=== PATIENT | male | born 1960 | race Caucasian/White ===

== ENCOUNTER 2021-01-26 09:49 | Emergency (ER) | payer BC ==
[2021-01-26] MEDS ORDERED: solu-MEDROL 125 MG, Sterile H2O 10 ml 2 ML IV ONE ×2 (10:26)
[2021-01-26] MEDS ORDERED: DUONEB 0.5-3 MG/3 ml Neb IH ONE ×2 (10:26→10:33)
--- NOTE | 2021-01-26 10:26 | ERPHSYRPT ---
- History of Present Illness Time Seen by Provider: 01/26/21 10:18 Source: patient Exam Limitations: no limitations Patient Subjective Stated Complaint: Pt c/o of cough, congestion, headache and body aches for the past couple of days Triage Nursing Assessment: Pt brought to the ER by his , addison mar, denies pain, has had his covid vaccine, required nebulizer treatment approx every 2 hours last night with little relief, clear thick sputum, body aches, congestion, headache, pulses normal, afbrile Physician History: 60-year-old male with a history of prosthetic aortic valve, hypertension, COPD presented in the ER with chief complaint of 2 days history of cough congestion along with body aches fatigue tiredness and headache. Patient reports clear take mucus productive cough with associated generalized chest soreness. Reports using neb treatments last night frequently with some relief. Also having sweats/chills without fever. Timing/Duration: day(s) (2), gradual onset, worse Cough Quality/Degree: moderate, productive cough, sputum Modifying Factors: Improves With: albuterol nebulizer. Worsens With: coughing Associated Symptoms: chills, chest pain/soreness, cough, headache, muscle aches, wheezing Allergies/Adverse Reactions: No Known Drug Allergies Allergy (Verified 01/26/21 10:09) Home Medications: Dipyridamole 50 mg PO TID 01/26/21 [History] Ipratropium/Albuterol Sulfate [Iprat-Albut 0.5-3(2.5) mg/3 ml] 3 ml IH UD 01/26/21 [History] Levothyroxine Sodium [Synthroid] 175 mcg PO DAILY 01/26/21 [History] Rosuvastatin Calcium 10 mg PO DAILY 01/26/21 [History] Verapamil HCl Sr 180 mg [Isoptin Sr 180Mg] 180 mg PO DAILY 01/26/21 [H istory] Warfarin Sodium 5 mg [Coumadin 5 MG] 5 mg PO DAILY 01/26/21 [History] Travel Risk - International Travel Have you traveled outside of the country in past 3 weeks: No - Coronavirus Screening Are you exhibiting any of the following symptoms?: No - Vaccine Status Have you recieved a Covid-19 vaccination: Yes [employer] 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[employer] - Vaccination Dates Date of 2cond Vaccination (if applicable): unknown - Review of Systems Constitutional: Chills, Fatigue, Weakness Eyes: No Symptoms Ears, Nose, & Throat: Nose Congestion Respiratory: Cough, Dyspnea, Dyspnea on Exertion (BARCENAS), Wheezing Cardiac: Chest Pain Abdominal/Gastrointestinal: No Symptoms Genitourinary Symptoms: No Symptoms Musculoskeletal: No Symptoms Skin: No Symptoms Neurological: No Symptoms Psychological: No Symptoms Endocrine: No Symptoms Hematologic/Lymphatic: No Symptoms Immunological/Allergic: No Symptoms - Past Medical History Pertinent Past Medical History: Yes Cardiac History: Other Endocrine Medical History: Thyroid Cancer - Past Surgical History Past Surgical History: Yes Cardiac: Valve Replacement Other Surgical History: thyroid removed - Social History Smoking Status: Former smoker Exposure to second hand smoke: No Drug Use: none Patient Lives Alone: No - Nursing Vital Signs Nursing Vital Signs: Initial Vital Signs Temperature 98.6 F 01/26/21 10:01 Pulse Rate 83 01/26/21 10:01 Respiratory Rate 13 01/26/21 10:01 Blood Pressure 128/88 01/26/21 10:01 O2 Sat by Pulse Oximetry 94 L 01/26/21 10:01 - Physical Exam General Appearance: no apparent distress, alert Eye Exam: PERRL/EOMI, eyes nml inspection Ears, Nose, Throat Exam: normal ENT inspection, pharynx normal Neck Exam: normal inspection, supple, full range of motion Respiratory Exam: normal breath sounds, lungs clear Cardiovascular Exam: regular rate/rhythm, normal heart sounds Gastrointestinal/Abdomen Exam: soft, normal bowel sounds Back Exam: normal inspection Extremity Exam: normal inspection, normal range of motion Neurologic Exam: alert, oriented x 3, cooperative Skin Exam: normal color SpO2 Interpretation: normal SpO2: 95 O2 Delivery: Room Air - Course EKG Interpreted by Me: RATE ([id number]), Sinus Rhythm, NORMAL AXIS, NORMAL INTERVALS, Non-specific ST Changes Ordered Tests: Active Orders 24 hr Category Date Time Status EKG-ER Only STAT Care 01/26/21 10:26 Active IV Insertion STAT Care 01/26/21 10:26 Active CHEST 1 VIEW (PORTABLE) Stat Exams 01/26/21 10:40 Taken BLOOD CULTURE Stat Lab 01/26/21 08:50 Received CBC W DIFF Stat Lab 01/26/21 08:52 Completed CMP Stat Lab 01/26/21 08:52 Completed MAGNESIUM Stat Lab 01/26/21 08:52 Completed NT PRO BNP Stat Lab 01/26/21 08:52 Completed PROTIME WITH INR Stat Lab 01/26/21 08:52 Completed TROPONIN Q3H Lab 01/26/21 08:52 Completed TROPONIN Q3H Lab 01/26/21 13:30 Ordered TROPONIN Q3H Lab 01/26/21 16:30 Ordered TROPONIN Q3H Lab 01/26/21 19:30 Ordered TROPONIN Q3H Lab 01/26/21 22:30 Ordered Respiratory Therapy Assessment DAILY RT 01/26/21 10:51 Active Medication Summary Discontinued Medications Generic Name Dose Route Start Last Admin Trade Name Freq PRN Reason Stop Dose Admin Albuterol/Ipratropium 3 ml 01/26/21 10:26 01/26/21 10:40 Ipratropium/Albuterol Sulfate 3 Ml Ampul.Neb IH 01/26/21 10:27 3 ml STAT ONE Administration Albuterol/Ipratropium Confirm 01/26/21 10:33 Ipratropium/Albuterol Sulfate 3 Ml Ampul.Neb Administered 01/26/21 10:34 Dose 3 ml IH .STK-MED ONE Methylprednisolone Sodium 0 mg 01/26/21 10:26 01/26/21 10:38 Succinate 125 mg/ Sterile IV 01/26/21 10:27 125 mg Water 2 ml STAT ONE Administration Methylprednisolone Sodium Succinate Confirm 01/26/21 10:32 Methylprednis Sod Succ 125 Mg/2 Ml Vial Administered 01/26/21 10:33 Dose 125 mg .ROUTE .STK-MED ONE Sterile Water Confirm 01/26/21 10:32 Water For Injection,Sterile 10 Ml Vial Administered 01/26/21 10:33 Dose 10 ml IJ .STK-MED ONE Lab/Rad Data: Laboratory Result Diagrams 01/26/21 08:52 01/26/21 08:52 Laboratory Results 01/26/21 01/26/21 01/26/21 Range/Units 08:52 08:52 08:52 WBC (4.0-10.5) K/mm3 RBC (4.1-5.6) M/mm3 Hgb (12.5-18.0) gm/dl Hct (42-50) % MCV (78-100) fl MCH (26-32) pg MCHC (32-36) g/dl RDW (11.5-14.0) % Plt Count (150-450) K/mm3 MPV (7.5-11.0) fl Gran % (36.0-66.0) % Eos # (Auto) (0-0.5) Absolute Lymphs (auto) (1.0-4.6) Absolute Monos (auto) (0.0-1.3) Lymphocytes % (24.0-44.0) % Monocytes % (0.0-12.0) % Eosinophils % (0.00-5.0) % Basophils % (0.0-0.4) % Absolute Granulocytes (1.4-6.9) Basophils # (0-0.4) PT 36.8 H (9.4-12.5) SECONDS INR 3.12 H (0.8-3.0) Sodium 137 (137-145) mmol/L Potassium 4.2 (3.5-5.1) mmol/L Chloride 105 (98-107) mmol/L Carbon Dioxide 29 (22-30) mmol/L Anion Gap 7.7 (5-15) MEQ/L BUN 15 (9-20) mg/dL Creatinine 0.89 (0.66-1.25) mg/dL Estimated GFR > 60.0 ML/MIN Glucose 98 (74-106) mg/dL Calcium 8.4 (8.4-10.2) mg/dL Magnesium 2.0 (1.6-2.3) mg/dL Total Bilirubin 0.70 (0.2-1.3) mg/dL AST 26 (17-59) U/L ALT 22 (0-50) U/L Alkaline Phosphatase 63 (38-126) U/L Troponin I < 0.012 (0.000-0.034) ng/mL NT-Pro-B Natriuret Pep 136 (0-900) pg/mL Serum Total Protein 6.6 (6.3-8.2) g/dL Albumin 3.9 (3.5-5.0) g/dL 01/26/21 Range/Units 08:52 WBC 14.8 H (4.0-10.5) K/mm3 RBC 4.93 (4.1-5.6) M/mm3 Hgb 15.1 (12.5-18.0) gm/dl Hct 46.4 (42-50) % MCV 94.1 (78-100) fl MCH 30.6 (26-32) pg MCHC 32.5 (32-36) g/dl RDW 13.8 (11.5-14.0) % Plt Count 184 (150-450) K/mm3 MPV 10.2 (7.5-11.0) fl Gran % 65.2 (36.0-66.0) % Eos # (Auto) 0.39 (0-0.5) Absolute Lymphs (auto) 3.36 (1.0-4.6) Absolute Monos (auto) 1.36 H (0.0-1.3) Lymphocytes % 22.7 L (24.0-44.0) % Monocytes % 9.2 (0.0-12.0) % Eosinophils % 2.6 (0.00-5.0) % Basophils % 0.3 (0.0-0.4) % Absolute Granulocytes 9.66 H (1.4-6.9) Basophils # 0.04 (0-0.4) PT (9.4-12.5) SECONDS INR (0.8-3.0) Sodium (137-145) mmol/L Potassium (3.5-5.1) mmol/L Chloride (98-107) mmol/L Carbon Dioxide (22-30) mmol/L Anion Gap (5-15) MEQ/L BUN (9-20) mg/dL Creatinine (0.66-1.25) mg/dL Estimated GFR ML/MIN Glucose (74-106) mg/dL Calcium (8.4-10.2) mg/dL Magnesium (1.6-2.3) mg/dL Total Bilirubin (0.2-1.3) mg/dL AST (17-59) U/L ALT (0-50) U/L Alkaline Phosphatase (38-126) U/L Troponin I (0.000-0.034) ng/mL NT-Pro-B Natriuret Pep (0-900) pg/mL Serum Total Protein (6.3-8.2) g/dL Albumin (3.5-5.0) g/dL - Progress Progress: improved, re-examined Air Movement: good Progress Note: 01/26/21 12:13 60-year-old is evaluated for worsening cough productive of thick white sputum with chills. Is given DuoNeb and Solu-Medrol, on reevaluation feeling much better. Is maintaining oxygen saturation around 94% on room air without tachypnea or tachycardia. INR is therapeutic. Has a white count of 14 and chest x-ray did not reveal any obvious infiltrative process per [facility]. I believe patient has COPD exacerbation and will give a short course of steroids and is advised to continue with breathing treatments and outpatient follow-up. Discussed signs symptoms of worsening needing return to ER which he seems understanding. Blood Culture(s) Obtained: Yes Antibiotics given: No Counseled pt/family regarding: lab results, diagnosis, need for follow-up, rad results - Departure Departure Disposition: Home Clinical Impression: COPD exacerbation Condition: Stable Critical Care Time: No Referrals: TAWNY JACOB MD [ACTIVE STAFF] - Follow up/PCP as directed (1-2 days for reevaluation) Instructions: Chronic Obstructive Pulmonary Disease, Cough, Adult (DC), Exacerbation of COPD (DC) Additional Instructions: Continue with neb treatments every 4-6 hourly at home. Take Tylenol as needed for fever/chills. Follow-up with your primary care for reevaluation in 1 to 2 days. Return to ER for worsening cough or if having difficulty breathing, fever etc. Prescriptions: Prednisone 20 mg [Deltasone 20 mg] 60 mg PO DAILY 5 Days #15 tablet
[2021-01-26] MEDS ORDERED: Sterile H2O 10 ml IJ ONE (10:32)
[2021-01-26] MEDS ORDERED: solu-MEDROL ONE (10:32)
[2021-01-26 10:51] LABS: Absolute Neutrophil Ct (ANC) 9.66 (1.4-6.9); BASOPHIL % 0.3 % (0.0-0.4); Basophil (Absolute #) 0.04 (0-0.4); Eosinophil % 2.6 % (0.00-5.0); Eosinophil (Absolute #) 0.39 (0-0.5); Hematocrit 46.4 % (42-50); Hemoglobin 15.1 gm/dl (12.5-18.0); Lymphocyte (Absolute #) 3.36 (1.0-4.6); Lymphocytes % 22.7 % (24.0-44.0); Mean Cell Volume 94.1 fl (78-100); Mean Corpuscular Hemoglobin 30.6 pg (26-32); Mean Corpuscular Hgb Concent. 32.5 g/dl (32-36); Mean Platelet Volume 10.2 fl (7.5-11.0); Monocyte (Absolute #) 1.36 (0.0-1.3); Monocytes % 9.2 % (0.0-12.0); Neutrophil % 65.2 % (36.0-66.0); Platelet Count 184 K/mm3 (150-450); Red Blood Count 4.93 M/mm3 (4.1-5.6); Red Cell Distribution Width 13.8 % (11.5-14.0); White Blood Count 14.8 K/mm3 (4.0-10.5)
[2021-01-26 10:57] LABS: INR 3.12 (0.8-3.0); PROTIME 36.8 SECONDS (9.4-12.5)
[2021-01-26 11:11] LABS: ALBUMIN 3.9 g/dL (3.5-5.0); ALKALINE PHOSPHATASE 63 U/L (38-126); ANION GAP 7.7 MEQ/L (5-15); BLOOD UREA NITROGEN 15 mg/dL (9-20); CHLORIDE 105 mmol/L (98-107); Calcium 8.4 mg/dL (8.4-10.2); Carbon Dioxide 29 mmol/L (22-30); Creatinine 1 0.89 mg/dL (0.66-1.25); EST GLOMERULAR FILTRATION RATE > 60.0 ML/MIN; Glucose 98 mg/dL (74-106); NT PRO BNP 136 pg/mL (0-900); Potassium 4.2 mmol/L (3.5-5.1); SGOT/AST 26 U/L (17-59); SGPT/ALT 22 U/L (0-50); SODIUM 137 mmol/L (137-145); Total Protein 6.6 g/dL (6.3-8.2)
--- NOTE | 2021-01-26 18:52 | XRAY ---
Indication: Short of breath. COPD. Comparison: None Portable chest mildly rotated. Lungs hyperinflated and clear. Heart not enlarged with previous cardiothoracic surgery. Bony thorax intact. Impression: Nonacute hyperinflated chest. Comment: Preliminary interpretation made by [facility]. No critical discrepancy.
== END 2021-01-26 12:26 | disposition home or self-care (01) ==
LOC: ED 09:49
DX: J44.1 Chronic obstructive pulmonary disease with (acute) exacerbation (principal); I10 Essential (primary) hypertension; Z79.01 Long term (current) use of anticoagulants; Z87.891 Personal history of nicotine dependence; R05.9 Cough, unspecified; R09.81 Nasal congestion; R51.9 Headache, unspecified; R53.83 Other fatigue
CPT/HCPCS: 36000; 36415; 71045; 80053; 83735; 83880; 84484; 85025; 85610; 87040; 93005; 94640; 96374; 99284; J2930; A9270-GY

== ENCOUNTER 2021-03-23 09:16 | Emergency (ER) | payer BC ==
[2021-03-23] MEDS ORDERED: BABY ASPIRIN 81 MG CHEW PO ONE (09:35)
[2021-03-23] MEDS ORDERED: DUONEB 0.5-3 MG/3 ml Neb IH ONE ×2 (09:37→10:47)
[2021-03-23] MEDS ORDERED: solu-MEDROL 125 MG, Sterile H2O 10 ml 2 ML IV ONE ×2 (09:37)
[2021-03-23] MEDS ORDERED: solu-MEDROL ONE (09:46)
--- NOTE | 2021-03-23 09:54 | ERPHSYRPT ---
- History of Present Illness Time Seen by Provider: 03/23/21 09:25 Source: patient Exam Limitations: no limitations Patient Subjective Stated Complaint: Patient c/o chest pain since 03/22, with increasing pain this morning. States it feels tight in upper chest with shortness of breath. is admitted for COVID, patient awaiting results. Triage Nursing Assessment: Patient to ED with chest pain. Patient is ambulatory with c/o chest tightness and SOB. Patient is breathing easy, pink, warm, and dry. Physician History: Location: chest Quality: chest tightness Radiation: none Severity: mild Duration: yesterday Timing: constant Modifying factors/associated signs and symptoms: tested positive for Covid and is currently admitted to the hospital for Covid. Timing/Duration: yesterday Severity: moderate Modifying Factors: Improves With: other Associated Symptoms: shortness of breath, other Allergies/Adverse Reactions: No Known Drug Allergies Allergy (Verified 03/23/21 09:40) Home Medications: Dipyridamole 50 mg PO TID 01/26/21 [History] Ipratropium/Albuterol Sulfate [Iprat-Albut 0.5-3(2.5) mg/3 ml] 3 ml IH UD 01/26/21 [History] Levothyroxine Sodium [Synthroid] 175 mcg PO DAILY 01/26/21 [History] Rosuvastatin Calcium 10 mg PO DAILY 01/26/21 [History] Verapamil HCl Sr 180 mg [Isoptin Sr 180Mg] 180 mg PO DAILY 01/26/21 [History] Warfarin Sodium 5 mg [Coumadin 5 MG] 5 mg PO DAILY 01/26/21 [History] Hx Tetanus, Diphtheria Vaccination/Date Given: Yes Hx Influenza Vaccination/Date Given: No Hx Pneumococcal Vaccination/Date Given: No Immunizations Up to Date: Yes Travel Risk - International Travel Have you traveled outside of the country in past 3 weeks: No - Coronavirus Screening Are you exhibiting any of the following symptoms?: Yes Symptoms: Cough: New Onset, Shortness of Breath, Headaches/Body Aches/Fatigue Close contact with a COVID-19 positive Pt in past 14-21 Days: Yes - Vaccine Status Have you recieved a Covid-19 vaccination: Yes 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[employer] - Vaccination Dates Date of 2cond Vaccination (if applicable): November - Review of Systems Constitutional: No Fever, No Chills Eyes: No Symptoms Ears, Nose, & Throat: No Symptoms Respiratory: Dyspnea, No Cough Cardiac: Chest Pain, No Edema, No Syncope Abdominal/Gastrointestinal: No Abdominal Pain, No Nausea, No Vomiting, No Diarrhea Genitourinary Symptoms: No Dysuria Musculoskeletal: No Back Pain, No Neck Pain Skin: No Rash Neurological: No Dizziness, No Focal Weakness, No Sensory Changes Psychological: No Symptoms Endocrine: No Symptoms All Other Systems: Reviewed and Negative - Past Medical History Pertinent Past Medical History: Yes Cardiac History: Other Endocrine Medical History: Thyroid Cancer Other Medical History: Aortic valve replacement 1995, 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 - Past Surgical History Past Surgical History: Yes Cardiac: Valve Replacement Other Surgical History: thyroid removed - Social History Smoking Status: Former smoker How long have you smoked: 30 years Exposure to second hand smoke: No Drug Use: none Patient Lives Alone: No - Nursing Vital Signs Nursing Vital Signs: Initial Vital Signs Temperature 97.8 F 03/23/21 09:25 Pulse Rate 94 H 03/23/21 09:25 Blood Pressure 153/95 03/23/21 09:25 O2 Sat by Pulse Oximetry 95 03/23/21 09:25 Pain Scale Pain Intensity 5 - Physical Exam SpO2 Interpretation: normal SpO2: 95 Comments: 03/23/21 09:53 Physical Exam Vitals signsand nursing notereviewed. Constitutional: Appearance: He is well-developed. HENT: Head: Normocephalicand atraumatic. Eyes: Conjunctiva/sclera: Conjunctivae normal. Neck: Musculoskeletal: Normal range of motion. Trachea: No tracheal deviation. Cardiovascular: Rate and Rhythm: Normal rate. Pulmonary: Effort: Pulmonary effort is normal. Norespiratory distress. Abdominal: Palpations: Abdomen is soft. Musculoskeletal: General: No deformity. Skin: General: Skin is warmand dry. Neurological: Mental Status: He is alertand oriented to person, place, and time. Psychiatric: Behavior: Behaviornormal. 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 03/23/21 09:36 Completed EKG-ER Only STAT Care 03/23/21 09:35 Completed IV Insertion STAT Care 03/23/21 09:35 Completed CHEST 1 VIEW (PORTABLE) Stat Exams 03/23/21 09:54 Taken CHEST WITH CONTRAST [CT] Stat Exams 03/23/21 11:18 Taken BLOOD CULTURE Stat Lab 03/23/21 10:00 Received CBC W DIFF Stat Lab 03/23/21 09:35 Completed CMP Stat Lab 03/23/21 10:00 Completed D-DIMER QUANTITATIVE Stat Lab 03/23/21 09:35 Completed NT PRO BNP Stat Lab 03/23/21 10:00 Completed PROTIME WITH INR Stat Lab 03/23/21 09:35 Completed TROPONIN Q3H Lab 03/23/21 09:35 Completed TROPONIN Q3H Lab 03/23/21 12:45 Completed UA W/RFX UR CULTURE Stat Lab 03/23/21 09:41 Completed Respiratory Therapy Assessment ONCE RT 03/23/21 10:54 Completed Medication Summary Discontinued Medications Generic Name Dose Route Start Last Admin Trade Name Freq PRN Reason Stop Dose Admin Albuterol/Ipratropium 3 ml 03/23/21 09:37 03/23/21 10:51 Ipratropium/Albuterol Sulfate 3 Ml Ampul.Neb IH 03/23/21 09:38 3 ml STAT ONE Administration Albuterol/Ipratropium Confirm 03/23/21 10:47 Ipratropium/Albuterol Sulfate 3 Ml Ampul.Neb Administered 03/23/21 10:48 Dose 3 ml IH .STK-MED ONE Aspirin 324 mg 03/23/21 09:35 03/23/21 09:43 Aspirin 81 Mg Tab.Chew PO 03/23/21 09:36 324 mg STAT ONE Administration Methylprednisolone Sodium 0 mg 03/23/21 09:37 03/23/21 09:47 Succinate 125 mg/ Sterile IV 03/23/21 09:38 125 mg Water 2 ml STAT ONE Administration Methylprednisolone Sodium Succinate Confirm 03/23/21 09:46 Methylprednis Sod Succ 125 Mg/2 Ml Vial Administered 03/23/21 09:47 Dose 125 mg .ROUTE .STK-MED ONE Lab/Rad Data: Laboratory Result Diagrams 03/23/21 09:35 03/23/21 10:00 Laboratory Results 03/23/21 03/23/21 03/23/21 Range/Units 12:45 10:00 09:41 WBC (4.0-10.5) K/mm3 RBC (4.1-5.6) M/mm3 Hgb (12.5-18.0) gm/dl Hct (42-50) % MCV (78-100) fl MCH (26-32) pg MCHC (32-36) g/dl RDW (11.5-14.0) % Plt Count (150-450) K/mm3 MPV (7.5-11.0) fl Gran % (36.0-66.0) % Eos # (Auto) (0-0.5) Absolute Lymphs (auto) (1.0-4.6) Absolute Monos (auto) (0.0-1.3) Lymphocytes % (24.0-44.0) % Monocytes % (0.0-12.0) % Eosinophils % (0.00-5.0) % Basophils % (0.0-0.4) % Absolute Granulocytes (1.4-6.9) Basophils # (0-0.4) PT (9.4-12.5) SECONDS INR (0.8-3.0) D-Dimer (215-500) ng/mL Sodium 139 (137-145) mmol/L Potassium 4.1 (3.5-5.1) mmol/L Chloride 104 (98-107) mmol/L Carbon Dioxide 30 (22-30) mmol/L Anion Gap 9.1 (5-15) MEQ/L BUN 16 (9-20) mg/dL Creatinine 0.78 (0.66-1.25) mg/dL Estimated GFR > 60.0 ML/MIN Glucose 130 H (74-106) mg/dL Calcium 8.8 (8.4-10.2) mg/dL Total Bilirubin 0.70 (0.2-1.3) mg/dL AST 28 (17-59) U/L ALT 24 (0-50) U/L Alkaline Phosphatase 68 (38-126) U/L Troponin I < 0.012 (0.000-0.034) ng/mL NT-Pro-B Natriuret Pep 119 (0-900) pg/mL Serum Total Protein 6.9 (6.3-8.2) g/dL Albumin 4.2 (3.5-5.0) g/dL Urine Color STRAW (YELLOW) Urine Appearance CLEAR (CLEAR) Urine pH 5.0 (5-6) Ur Specific [place] 1.004 (1.005-1.025) Urine Protein NEGATIVE (Negative) Urine Ketones NEGATIVE (NEGATIVE) Urine Blood SMALL (0-5) Sascha/ul Urine Nitrite NEGATIVE (NEGATIVE) Urine Bilirubin NEGATIVE (NEGATIVE) Urine Urobilinogen NEGATIVE (0-1) mg/dL Ur Leukocyte Esterase NEGATIVE (NEGATIVE) Urine WBC (Auto) NONE (0-5) /HPF Urine RBC (Auto) NONE (0-2) /HPF U Epithel Cells (Auto) NONE (FEW) /HPF Urine Bacteria (Auto) NONE (NEGATIVE) /HPF Urine Mucus (Auto) SLIGHT (NEGATIVE) /HPF Urine Culture Reflexed NO (NO) Urine Glucose NEGATIVE (NEGATIVE) mg/dL 03/23/21 03/23/21 03/23/21 Range/Units 09:35 09:35 09:35 WBC 8.0 (4.0-10.5) K/mm3 RBC 5.13 (4.1-5.6) M/mm3 Hgb 15.7 (12.5-18.0) gm/dl Hct 47.6 (42-50) % MCV 92.8 (78-100) fl MCH 30.6 (26-32) pg MCHC 33.0 (32-36) g/dl RDW 13.8 (11.5-14.0) % Plt Count 161 (150-450) K/mm3 MPV 10.5 (7.5-11.0) fl Gran % 64.6 (36.0-66.0) % Eos # (Auto) 0.03 (0-0.5) Absolute Lymphs (auto) 2.28 (1.0-4.6) Absolute Monos (auto) 0.52 (0.0-1.3) Lymphocytes % 28.4 (24.0-44.0) % Monocytes % 6.5 (0.0-12.0) % Eosinophils % 0.4 (0.00-5.0) % Basophils % 0.1 (0.0-0.4) % Absolute Granulocytes 5.20 (1.4-6.9) Basophils # 0.01 (0-0.4) PT 41.9 H (9.4-12.5) SECONDS INR 3.55 H (0.8-3.0) D-Dimer < 215 L (215-500) ng/mL Sodium (137-145) mmol/L Potassium (3.5-5.1) mmol/L Chloride (98-107) mmol/L Carbon Dioxide (22-30) mmol/L Anion Gap (5-15) MEQ/L BUN (9-20) mg/dL Creatinine (0.66-1.25) mg/dL Estimated GFR ML/MIN Glucose (74-106) mg/dL Calcium (8.4-10.2) mg/dL Total Bilirubin (0.2-1.3) mg/dL AST (17-59) U/L ALT (0-50) U/L Alkaline Phosphatase (38-126) U/L Troponin I < 0.012 (0.000-0.034) ng/mL NT-Pro-B Natriuret Pep (0-900) pg/mL Serum Total Protein (6.3-8.2) g/dL Albumin (3.5-5.0) g/dL Urine Color (YELLOW) Urine Appearance (CLEAR) Urine pH (5-6) Ur Specific [place] (1.005-1.025) Urine Protein (Negative) Urine Ketones (NEGATIVE) Urine Blood (0-5) Sascha/ul Urine Nitrite (NEGATIVE) Urine Bilirubin (NEGATIVE) Urine Urobilinogen (0-1) mg/dL Ur Leukocyte Esterase (NEGATIVE) Urine WBC (Auto) (0-5) /HPF Urine RBC (Auto) (0-2) /HPF U Epithel Cells (Auto) (FEW) /HPF Urine Bacteria (Auto) (NEGATIVE) /HPF Urine Mucus (Auto) (NEGATIVE) /HPF Urine Culture Reflexed (NO) Urine Glucose (NEGATIVE) mg/dL - Progress Progress: improved Progress Note: 03/23/21 09:53 We'll obtain basic labs, fluids, EKG, troponin, chest x-ray - EKG shows no ST changes - my read. See full read below. - O2 saturations consistently greater than 95%. - CXR shows no pneumonia, pneumothorax - my read 03/23/21 15:12 Patient has a negative CTA chest here. No pulmonary embolism, no aortic dissection. Patient has 2 negative troponins over 3 hours. Pain and tightness improved with COPD treatment. Patient also had a negative D-dimer. Therefore much less likely to be a PE as well. Patient most likely has COVID given that his has COVID. Overall patient is improved at this point time. Plan to discharge patient home. Return here for any new or changing symptoms. See PCP for reexam in 2 to 3 days. Plan of care was discussed with patient and all questions answered. The patient is agreeable to be discharged home and both verbal and printed discharge instructions were provided.The patient agreed to seek outpatient follow up as discussed. The patient was given strict instructions to return to the emergency department for worsening symptoms or any other emergent concerns. The patient verbalized understanding. - Departure Departure Disposition: Extended Care Facility Clinical Impression: Chest tightness, COPD exacerbation, COVID-19 Condition: Good Critical Care Time: No Referrals: CANDACE INGRAM [Primary Care Provider] - Follow up/PCP as directed Instructions: Chronic Obstructive Pulmonary Disease, Chest Pain (DC) Additional Instructions: Serum primary care physician for reexam in 24 to 48 hours. You may return here anytime sooner should your symptoms change. You most likely do have COVID. Therefore self isolate and take all medications as prescribed.
[2021-03-23 10:07] LABS: Basophil (Absolute #) 0.01 (0-0.4); Eosinophil % 0.4 % (0.00-5.0); Eosinophil (Absolute #) 0.03 (0-0.5); Hematocrit 47.6 % (42-50); Hemoglobin 15.7 gm/dl (12.5-18.0); Lymphocyte (Absolute #) 2.28 (1.0-4.6); Lymphocytes % 28.4 % (24.0-44.0); Mean Cell Volume 92.8 fl (78-100); Mean Corpuscular Hemoglobin 30.6 pg (26-32); Mean Platelet Volume 10.5 fl (7.5-11.0); Monocyte (Absolute #) 0.52 (0.0-1.3); Monocytes % 6.5 % (0.0-12.0); Neutrophil % 64.6 % (36.0-66.0); Platelet Count 161 K/mm3 (150-450); Red Blood Count 5.13 M/mm3 (4.1-5.6); Red Cell Distribution Width 13.8 % (11.5-14.0)
[2021-03-23 10:11] LABS: Appearance CLEAR (CLEAR); Bilirubin NEGATIVE (NEGATIVE); Blood SMALL Ery/ul (0-5); Glucose NEGATIVE (NEGATIVE); Ketones NEGATIVE (NEGATIVE); Leukocyte Esterase NEGATIVE (NEGATIVE); Mucus SLIGHT /HPF (NEGATIVE); Nitrite NEGATIVE (NEGATIVE); Protein,Urine Dip NEGATIVE (Negative); Specific Gravity 1.004 (1.005-1.025); Urobilinogen NEGATIVE mg/dL (0-1)
[2021-03-23 10:18] LABS: INR 3.55 (0.8-3.0); PROTIME 41.9 SECONDS (9.4-12.5)
[2021-03-23 10:31] LABS: ALBUMIN 4.2 g/dL (3.5-5.0); ALKALINE PHOSPHATASE 68 U/L (38-126); ANION GAP 9.1 MEQ/L (5-15); BLOOD UREA NITROGEN 16 mg/dL (9-20); CHLORIDE 104 mmol/L (98-107); Calcium 8.8 mg/dL (8.4-10.2); Carbon Dioxide 30 mmol/L (22-30); Creatinine 1 0.78 mg/dL (0.66-1.25); EST GLOMERULAR FILTRATION RATE > 60.0 ML/MIN; Glucose 130 mg/dL (74-106); NT PRO BNP 119 pg/mL (0-900); Potassium 4.1 mmol/L (3.5-5.1); SGOT/AST 28 U/L (17-59); SGPT/ALT 24 U/L (0-50); SODIUM 139 mmol/L (137-145); Total Protein 6.9 g/dL (6.3-8.2)
[2021-03-23 10:35] LABS: D-DIMER QUANTITATIVE < 215 ng/mL (215-500)
[2021-03-23 12:03] VITALS: BP 142/92
[2021-03-23 13:33] VITALS: O2SAT 95
[2021-03-23 13:36] VITALS: PULSE 80
--- NOTE | 2021-03-23 18:17 | XRAY ---
Indication: Cough and short of breath. Suspect Covid 19. Comparison: January 26, 2021. Portable chest demonstrates new minimal bibasilar subsegmental atelectasis/scarring. Remaining lungs again hyperinflated with tiny right upper lobe calcified granuloma. Heart not enlarged again with aortic valve replacement. Bony thorax intact again with osteopenia and degenerative changes. Impression: Continued nonacute chest with chronic features.
--- NOTE | 2021-03-23 18:23 | XRAY ---
Indication: Chest pain. Suspect Covid 19. Multiple contiguous images obtained through the chest using 80 cc Isovue 370 contrast. Comparison: None Lungs demonstrate diffuse pulmonary emphysema, right upper lobe calcified granuloma, and minimal bibasilar subsegmental atelectasis/scarring. No suspicious pulmonary mass, infiltrate, consolidation, or effusion. Heart not enlarged with previous aortic valve replacement. Maximum diameter ascending aorta is 4.9 cm. Remaining aorta is normal in course and caliber. Tiny mediastinal and bilateral hilar calcified nodes. Bony thorax intact with sternotomy wires. Limited upper abdomen demonstrates tiny 4 mm left lobe hepatic cyst. Impression: 1. Ascending aorta 4.9 cm diameter. 2. Pulmonary emphysema, tiny hepatic cyst, and old granulomatous disease. 3. Remaining CT chest with contrast exam is negative. Comment: Preliminary interpretation made by [facility]. No critical discrepancy.
== END 2021-03-23 13:47 | disposition home or self-care (01) ==
LOC: ED 09:16
DX: U07.1 COVID-19 (principal); J44.1 Chronic obstructive pulmonary disease with (acute) exacerbation; R07.89 Other chest pain; R06.02 Shortness of breath; Z79.01 Long term (current) use of anticoagulants; Z95.2 Presence of prosthetic heart valve
CPT/HCPCS: 36000; 36415; 71045; 71260; 80053; 81001; 83880; 84484; 85025; 85379; 85610; 87040; 93005; 93041; 94640; 96374; 99284; J2930; A9270-GY

== ENCOUNTER 2021-07-14 03:16 | Emergency (ER) | payer BC ==
[2021-07-14] MEDS ORDERED: DUONEB 0.5-3 MG/3 ml Neb IH ONE ×2 (03:29→03:44)
[2021-07-14] MEDS ORDERED: BABY ASPIRIN 81 MG CHEW PO ONE (03:30)
--- NOTE | 2021-07-14 03:42 | ERPHSYRPT ---
- History of Present Illness Historian: patient Exam Limitations: no limitations Patient Subjective Stated Complaint: pt states he has been feeling unwell for the last week. states today he has chest pain increasing throughout the day and much worse tonight when he tried to lay down. Triage Nursing Assessment: pt alert and oriented, answers questions approp. pt ambulatory with steady gait noted. respirations nonlabored. insp and exp wheezes noted bilat. skin warm and dry. heart rate 82 on monitor, sinus rhythm with pac's Physician History: 60 yo wm w mid-sternal chest pain since early this morning. Pain is described as a "Heaviness" wo radiation. He has had dyspnea wo N/V/Diaphoresis. Pt has had a cough/coryza x1wk. Fever is denied. He has a h/o AVR(Mechanical), TAA, smoked 1ppd until 10yrs ago. Timing/Duration: today Activities at Onset: rest Quality: other ("Heaviness") Location: substernal Chest Pain Radiation: no radiation Severity of Pain-Max: severe Severity of Pain-Current: severe Modifying Factors: Improves With: breathing, coughing, exertion. Worsens With: antacids, defecating, eating, lying down, morphine, movement, nitroglycerin, oxygen, palpation, rest, aspirin, sitting up, change in position Associated Symptoms: shortness of breath, cough, hurts to breathe, No nausea, No vomiting, No palpitations, No heartburn, No abdominal pain, No diaphoresis, No chills, No fever, No fatigue, No weakness, No swelling/lump in chest, No syncope, No rash, No headache, No dizziness, No edema, No back pain Prior Chest Pain/Cardiac Workup: recently seen/treated Nitro Today/Relief: no nitro taken today Aspirin Treatment Today: no aspirin today Allergies/Adverse Reactions: No Known Drug Allergies Allergy (Verified 07/14/21 03:41) Home Medications: Dipyridamole 50 mg PO TID 01/26/21 [History] Ipratropium/Albuterol Sulfate [Iprat-Albut 0.5-3(2.5) mg/3 ml] 3 ml IH QID PRN 01/26/21 [History] Levothyroxine Sodium [Synthroid] 175 mcg PO DAILY 01/26/21 [History] Rosuvastatin Calcium 10 mg PO HS 01/26/21 [History] Verapamil HCl Sr 180 mg [Isoptin Sr 180Mg] 180 mg PO DAILY 01/26/21 [History] Warfarin Sodium 5 mg [Coumadin 5 MG] 2.5 mg PO DAILY 01/26/21 [History] Hx Tetanus, Diphtheria Vaccination/Date Given: Yes Hx Influenza Vaccination/Date Given: No Hx Pneumococcal Vaccination/Date Given: No Immunizations Up to Date: Yes Travel Risk - International Travel Have you traveled outside of the country in past 3 weeks: No - Coronavirus Screening Are you exhibiting any of the following symptoms?: Yes Symptoms: Shortness of Breath Close contact with a COVID-19 positive Pt in past 14-21 Days: No - Vaccine Status Have you recieved a Covid-19 vaccination: Yes [employer]: [email or web address] - Vaccination Dates Date of 2cond Vaccination (if applicable): 2020 - Review of Systems Constitutional: No Symptoms Eyes: No Symptoms Ears, Nose, & Throat: No Symptoms, Nose Congestion, Nose Discharge Respiratory: No Symptoms, Cough, Dyspnea, Dyspnea on Exertion (BARCENAS) Cardiac: No Symptoms, Chest Pain Abdominal/Gastrointestinal: No Symptoms Genitourinary Symptoms: No Symptoms Musculoskeletal: No Symptoms Skin: No Symptoms Neurological: No Symptoms Psychological: No Symptoms Endocrine: No Symptoms Hematologic/Lymphatic: No Symptoms Immunological/Allergic: No Symptoms - Past Medical History Pertinent Past Medical History: Yes Cardiac History: Other Respiratory History: COPD Endocrine Medical History: Thyroid Cancer Other Medical History: Aortic valve replacement 1995, 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 - Past Surgical History Past Surgical History: Yes Cardiac: Valve Replacement Other Surgical History: thyroid removed - Social History Smoking Status: Former smoker How long have you smoked: 30 years Exposure to second hand smoke: No Drug Use: none Patient Lives Alone: No Significant Family History: no pertinent family hx - Nursing Vital Signs Nursing Vital Signs: Initial Vital Signs Temperature 97.9 F 07/14/21 03:18 Pulse Rate 86 07/14/21 03:18 Respiratory Rate 18 07/14/21 03:18 Blood Pressure 139/97 07/14/21 03:18 O2 Sat by Pulse Oximetry 96 07/14/21 03:18 Pain Scale Pain Intensity 4 Mildly hypertensive - Physical Exam General Appearance: no apparent distress Eye Exam: PERRL/EOMI, eyes nml inspection Ears, Nose, Throat Exam: normal ENT inspection, TMs normal, pharynx normal, moist mucous membranes Neck Exam: normal inspection, non-tender, supple, full range of motion, No meningismus, No mass, No Brudzinski, No Kernig's Respiratory Exam: prolonged expirations, wheezing (Wheezing in all lung owusu) Cardiovascular Exam: regular rate/rhythm (Audible prosthetic valve), capillary refill <2 sec, No murmur Gastrointestinal/Abdomen Exam: soft, normal bowel sounds Extremity Exam: normal inspection, normal range of motion Neurologic Exam: alert, oriented x 3, cooperative, advertising rep II-XII nml as tested, normal mood/affect, nml cerebellar function, nml station & gait, sensation nml Skin Exam: normal color, warm, dry Lymphatic Exam: No adenopathy SpO2 Interpretation: normal SpO2: 96 O2 Delivery: Room Air - Course Nursing assessment & vital signs reviewed: Yes EKG Interpreted by Me: RATE (NSR/R86/Poor R wave progression V2-V3/PAC's/Normal QT-QTc/LVH w strain) - Radiology Exams Chest X-ray Interpretation: Interpreted by me (Post surgical chest/Nothing acute) - CT Exams Chest CT Interpretation: Tele-radiologist Report (No PE/AVR/5cm TAA wo dissection/COPD) Ordered Tests: Medication Summary Discontinued Medications Generic Name Dose Route Start Last Admin Trade Name Jimq PRN Reason Stop Dose Admin Albuterol Sulfate 2.5 mg 07/14/21 04:15 07/14/21 04:17 Albuterol Sulfate 2.5 Mg/3 Ml Neb IH 07/14/21 04:16 2.5 mg STAT ONE Administration Albuterol Sulfate Confirm 07/14/21 04:16 Albuterol Sulfate 2.5 Mg/3 Ml Neb Administered 07/14/21 04:17 Dose 2.5 mg IH .STK-MED ONE Albuterol/Ipratropium 3 ml 07/14/21 03:29 07/14/21 03:49 Ipratropium/Albuterol Sulfate 3 Ml Ampul.Neb IH 07/14/21 03:30 3 ml STAT ONE Administration Albuterol/Ipratropium Confirm 07/14/21 03:44 Ipratropium/Albuterol Sulfate 3 Ml Ampul.Neb Administered 07/14/21 03:45 Dose 3 ml IH .STK-MED ONE Aspirin 324 mg 07/14/21 03:30 07/14/21 03:40 Aspirin 81 Mg Tab.Chew PO 07/14/21 03:31 324 mg STAT ONE Administration Methylprednisolone Sodium 0 mg 07/14/21 04:40 07/14/21 04:44 Succinate 125 mg/ Sterile IV 07/14/21 04:41 125 mg Water 2 ml STAT ONE Administration Methylprednisolone Sodium Succinate Confirm 07/14/21 04:43 Methylprednis Sod Succ 125 Mg/2 Ml Vial Administered 07/14/21 04:44 Dose 125 mg .ROUTE .STK-MED ONE Sterile Water Confirm 07/14/21 04:44 Water For Injection,Sterile 10 Ml Vial Administered 07/14/21 04:45 Dose 10 ml IJ .STK-MED ONE Lab/Rad Data: Laboratory Result Diagrams 07/14/21 03:37 07/14/21 03:37 Laboratory Results 07/14/21 07/14/21 07/14/21 Range/Units 05: 03:38 03:37 WBC (4.0-10.5) K/mm3 RBC (4.1-5.6) M/mm3 Hgb (12.5-18.0) gm/dl Hct (42-50) % MCV (78-100) fl MCH (26-32) pg MCHC (32-36) g/dl RDW (11.5-14.0) % Plt Count (150-450) K/mm3 MPV (7.5-11.0) fl Gran % (36.0-66.0) % Eos # (Auto) (0-0.5) Absolute Lymphs (auto) (1.0-4.6) Absolute Monos (auto) (0.0-1.3) Lymphocytes % (24.0-44.0) % Monocytes % (0.0-12.0) % Eosinophils % (0.00-5.0) % Basophils % (0.0-0.4) % Absolute Granulocytes (1.4-6.9) Basophils # (0-0.4) PT (9.4-12.5) SECONDS INR (0.8-3.0) APTT (25.1-36.5) SECONDS Sodium (137-145) mmol/L Potassium (3.5-5.1) mmol/L Chloride (98-107) mmol/L Carbon Dioxide (22-30) mmol/L Anion Gap (5-15) MEQ/L BUN (9-20) mg/dL Creatinine (0.66-1.25) mg/dL Estimated GFR ML/MIN Glucose (74-106) mg/dL Calcium (8.4-10.2) mg/dL Total Bilirubin (0.2-1.3) mg/dL AST (17-59) U/L ALT (0-50) U/L Alkaline Phosphatase (38-126) U/L Troponin I < 0.012 < 0.012 (0.000-0.034) ng/mL NT-Pro-B Natriuret Pep (0-900) pg/mL Serum Total Protein (6.3-8.2) g/dL Albumin (3.5-5.0) g/dL Influenza Type A Ag NEGATIVE (NEGATIVE) Influenza Type B Ag NEGATIVE (NEGATIVE) RSV (PCR) NEGATIVE (Negative) SARS-CoV-2 (PCR) NEGATIVE (NEGATIVE) 07/14/21 07/14/21 07/14/21 Range/Units 03:37 03:37 03:37 WBC 11.2 H (4.0-10.5) K/mm3 RBC 5.40 (4.1-5.6) M/mm3 Hgb 16.7 (12.5-18.0) gm/dl Hct 49.6 (42-50) % MCV 91.9 (78-100) fl MCH 30.9 (26-32) pg MCHC 33.7 (32-36) g/dl RDW 13.7 (11.5-14.0) % Plt Count 175 (150-450) K/mm3 MPV 10.1 (7.5-11.0) fl Gran % 50.6 (36.0-66.0) % Eos # (Auto) 0.57 H (0-0.5) Absolute Lymphs (auto) 3.87 (1.0-4.6) Absolute Monos (auto) 1.05 (0.0-1.3) Lymphocytes % 34.5 (24.0-44.0) % Monocytes % 9.4 (0.0-12.0) % Eosinophils % 5.1 H (0.00-5.0) % Basophils % 0.4 (0.0-0.4) % Absolute Granulocytes 5.68 (1.4-6.9) Basophils # 0.05 (0-0.4) PT 30.0 H (9.4-12.5) SECONDS INR 2.54 (0.8-3.0) APTT 48.0 H (25.1-36.5) SECONDS Sodium 137 (137-145) mmol/L Potassium 3.8 (3.5-5.1) mmol/L Chloride 104 (98-107) mmol/L Carbon Dioxide 28 (22-30) mmol/L Anion Gap 9.0 (5-15) MEQ/L BUN 13 (9-20) mg/dL Creatinine 0.74 (0.66-1.25) mg/dL Estimated GFR > 60.0 ML/MIN Glucose 93 (74-106) mg/dL Calcium 8.9 (8.4-10.2) mg/dL Total Bilirubin 0.80 (0.2-1.3) mg/dL AST 27 (17-59) U/L ALT 25 (0-50) U/L Alkaline Phosphatase 68 (38-126) U/L Troponin I (0.000-0.034) ng/mL NT-Pro-B Natriuret Pep 143 (0-900) pg/mL Serum Total Protein 6.9 (6.3-8.2) g/dL Albumin 4.3 (3.5-5.0) g/dL Influenza Type A Ag (NEGATIVE) Influenza Type B Ag (NEGATIVE) RSV (PCR) (Negative) SARS-CoV-2 (PCR) (NEGATIVE) - Progress Progress: improved Progress Note: 07/14/21 05:46 Duoneb x1 w minimal improvement Albuterol neb x1 w improvement 125mg IV Solumedrol Wheezing greatly improved 07/16/21 15:47 Troponin neg x2 Counseled pt/family regarding: lab results, diagnosis, need for follow-up, rad results - Departure Departure Disposition: Home Clinical Impression: COPD exacerbation Condition: Stable Critical Care Time: No Referrals: CANDACE INGRAM [ACTIVE STAFF] - Follow up/PCP as directed Instructions: Chronic Obstructive Pulmonary Disease, Exacerbation of COPD (DC) Additional Instructions: Start Doxycycline twice a day for 1 week Decadron once a day for 5 days Pulmicort in nebulizer three times a day Follow up with your family MD in 1-2 days Return to ER for increasing pain, increasing shortness of breath, or temperature greater than 100.5 Prescriptions: Dexamethasone 4 mg [Decadron 4 MG] 4 mg PO DAILY 5 Days #5 tablet Doxycycline Monohydrate 100 mg PO BID #14 Budesonide [Pulmicort 0.5MG/2Ml Respules] 2 ml IH TID 10 Days
[2021-07-14 03:43] LABS: Absolute Neutrophil Ct (ANC) 5.68 (1.4-6.9); Basophil (Absolute #) 0.05 (0-0.4); Eosinophil % 5.1 % (0.00-5.0); Eosinophil (Absolute #) 0.57 (0-0.5); Hematocrit 49.6 % (42-50); Hemoglobin 16.7 gm/dl (12.5-18.0); Lymphocyte (Absolute #) 3.87 (1.0-4.6); Lymphocytes % 34.5 % (24.0-44.0); Mean Cell Volume 91.9 fl (78-100); Mean Corpuscular Hemoglobin 30.9 pg (26-32); Mean Corpuscular Hgb Concent. 33.7 g/dl (32-36); Mean Platelet Volume 10.1 fl (7.5-11.0); Monocyte (Absolute #) 1.05 (0.0-1.3); Monocytes % 9.4 % (0.0-12.0); Neutrophil % 50.6 % (36.0-66.0); Platelet Count 175 K/mm3 (150-450); Red Cell Distribution Width 13.7 % (11.5-14.0); White Blood Count 11.2 K/mm3 (4.0-10.5)
[2021-07-14 04:13] LABS: INR 2.54 (0.8-3.0)
[2021-07-14] MEDS ORDERED: PROVENTIL 2.5 MG/3 ML NEB IH ONE ×2 (04:15→04:16)
[2021-07-14 04:16] LABS: ALBUMIN 4.3 g/dL (3.5-5.0); ALKALINE PHOSPHATASE 68 U/L (38-126); BLOOD UREA NITROGEN 13 mg/dL (9-20); CHLORIDE 104 mmol/L (98-107); Calcium 8.9 mg/dL (8.4-10.2); Carbon Dioxide 28 mmol/L (22-30); Creatinine 1 0.74 mg/dL (0.66-1.25); EST GLOMERULAR FILTRATION RATE > 60.0 ML/MIN; Glucose 93 mg/dL (74-106); NT PRO BNP 143 pg/mL (0-900); Potassium 3.8 mmol/L (3.5-5.1); SGOT/AST 27 U/L (17-59); SGPT/ALT 25 U/L (0-50); SODIUM 137 mmol/L (137-145); Total Protein 6.9 g/dL (6.3-8.2)
[2021-07-14 04:22] LABS: INFLUENZA A NEGATIVE (NEGATIVE); INFLUENZA B NEGATIVE (NEGATIVE); RESPIRATORY SYNCTIAL VIRUS NEGATIVE (Negative); SARS-CoV-2 Xpert Express NEGATIVE (NEGATIVE)
[2021-07-14] MEDS ORDERED: solu-MEDROL 125 MG, Sterile H2O 10 ml 2 ML IV ONE ×2 (04:40)
[2021-07-14] MEDS ORDERED: solu-MEDROL ONE (04:43)
[2021-07-14] MEDS ORDERED: Sterile H2O 10 ml IJ ONE (04:44)
[2021-07-14 06:46] VITALS: BP 126/89; PULSE 74
--- NOTE | 2021-07-14 08:39 | XRAY ---
Indication: Chest pain, cough, and short of breath. Multiple contiguous axial images obtained through the chest using 100 cc Isovue 370 contrast and PE protocol. Comparison: March 23, 2021. There is good opacification of the pulmonary arteries to include the lobar and segmental branches. No pulmonary embolus. Heart not enlarged again with aortic valve replacement. Ascending aorta remains prominent up to 4.8 cm. Remaining aorta is normal in course and caliber. Again tiny mediastinal and bilateral hilar calcified nodes. Lungs again demonstrates diffuse pulmonary emphysema and right upper lobe calcified granuloma. No suspicious pulmonary mass, infiltrate, or effusion. Bony thorax intact again with sternotomy wires. Limited upper abdomen demonstrate stable tiny left lobe hepatic cyst. Impression: 1. Negative pulmonary embolus. No new/acute cardiopulmonary abnormalities. 2. Stable aortic valve replacement with prominent ascending aorta. 3. Again chronic findings including pulmonary emphysema, tiny hepatic cyst, and old granulomatous disease. Comment: Preliminary interpretation made by [facility]. No critical discrepancy.
--- NOTE | 2021-07-14 08:41 | XRAY ---
Indication: Chest pain. Comparison: March 23, 2021. Portable chest again hyperinflated with tiny right apical calcified granuloma. No focal infiltrate, consolidation, or large effusion. Heart not enlarged again with aortic valve replacement. Bony thorax intact again with mild degenerative changes. Impression: Continued nonacute hyperinflated chest with chronic features.
[2021-07-16 15:48] VITALS: O2SAT 96
== END 2021-07-14 06:45 | disposition home or self-care (01) ==
LOC: ED 03:16
DX: J44.1 Chronic obstructive pulmonary disease with (acute) exacerbation (principal); R07.9 Chest pain, unspecified; R06.00 Dyspnea, unspecified; R05.1 Acute cough; R09.81 Nasal congestion; Z79.01 Long term (current) use of anticoagulants; Z79.52 Long term (current) use of systemic steroids; Z79.899 Other long term (current) drug therapy
CPT/HCPCS: 0241U; 36000; 36415; 71045; 71260; 80053; 83880; 84484; 85025; 85610; 85730; 93005; 93041; 94640; 96374; 99284; J2930; J7609; A9270-GY

== ENCOUNTER 2022-12-20 16:50 | Emergency (ER) | payer BC ==
--- NOTE | 2022-12-20 16:55 | ERPHSYRPT ---
- History of Present Illness Time Seen by Provider: 12/20/22 16:54 Source: patient, family Exam Limitations: no limitations Physician History: pt had onset back pain today but no hx lifting or trauma. Has blood thinner for AVR. No CP , but has nausea and has not eaten today. Left radicular pains down leg. no neuro deficits. No bowel or bladder symptoms or effects. Hx thyroid cancer in remission, Basal cell Ca. Chest clear. Ht reg with no M crisp sounds. Abd soft nontender without peritoneal signs or masses or distension. Discussed risks/benefits with pt and for CBC, Lactate, UA, Lipase, [place], CMP, CT abd and back, INF , Trops and EKG with cardiac Hx, and they wish to proceed; these are ordered and later results discussed. was separate independent source for Hx. Timing/Duration: today Method of Injury: unknown Quality: burning, dull, radiating, sharp Back Pain Location: lumbar spine Back Pain Radiation: upper legs, lower legs Severity of Pain-Max: moderate Severity of Pain-Current: moderate Modifying Factors: Improves With: movement Associated Symptoms: nausea, No urinary incontinence, No loss of bowel control, No vomiting, No problems urinating Previous symptoms: no prior history, other (remote back pain - nothing like this) Allergies/Adverse Reactions: No Known Drug Allergies Allergy (Verified 07/14/21 03:41) Home Medications: Dipyridamole 50 mg PO TID 01/26/21 [History] Ipratropium/Albuterol Sulfate [Iprat-Albut 0.5-3(2.5) mg/3 ml] 3 ml IH QID PRN 01/26/21 [History] Levothyroxine Sodium [Synthroid] 175 mcg PO DAILY 01/26/21 [History] Rosuvastatin Calcium 10 mg PO HS 01/26/21 [History] Verapamil HCl Sr [Isoptin Sr 180Mg] 180 mg PO DAILY 01/26/21 [History] Warfarin Sodium 5 mg [Coumadin 5 MG] 2.5 mg PO DAILY 01/26/21 [History] Hx Tetanus, Diphtheria Vaccination/Date Given: Yes Hx Influenza Vaccination/Date Given: No Hx Pneumococcal Vaccination/Date Given: No Travel Risk - Vaccine Status Have you recieved a Covid-19 vaccination: Yes 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: [employer] - Vaccination Dates Date of 2cond Vaccination (if applicable): 2020 - Review of Systems Constitutional: No Fever, No Chills Eyes: No Symptoms Ears, Nose, & Throat: No Symptoms Respiratory: No Cough, No Dyspnea Cardiac: No Chest Pain, No Edema, No Syncope Abdominal/Gastrointestinal: Nausea, No Abdominal Pain, No Vomiting, No Diarrhea Genitourinary Symptoms: No Dysuria Musculoskeletal: Back Pain, No Neck Pain, No Fall, No Injury Skin: No Symptoms, Other (left leg radicular sym[ptoms), No Rash Neurological: No Dizziness, No Focal Weakness, No Sensory Changes Psychological: No Symptoms Endocrine: No Symptoms Hematologic/Lymphatic: No Symptoms Immunological/Allergic: No Symptoms All Other Systems: Reviewed and Negative - Past Medical History Pertinent Past Medical History: Yes Cardiac History: Other Respiratory History: COPD Endocrine Medical History: Thyroid Cancer Other Medical History: Aortic valve replacement 1995, 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 - Past Surgical History Past Surgical History: Yes Cardiac: Valve Replacement Other Surgical History: thyroid removed - Social History Smoking Status: Former smoker How long have you smoked: 30 years Exposure to second hand smoke: No Drug Use: none Patient Lives Alone: No Significant Family History: no pertinent family hx - Nursing Vital Signs Nursing Vital Signs: Initial Vital Signs Temperature 98.4 F 12/20/22 17:14 Pulse Rate 73 12/20/22 17:14 Respiratory Rate 18 12/20/22 17:14 Blood Pressure 152/84 12/20/22 17:14 O2 Sat by Pulse Oximetry 96 12/20/22 17:14 Pain Scale Pain Intensity [] 10 Pain Intensity 8 - Physical Exam General Appearance: no apparent distress, alert Eye Exam: PERRL/EOMI, eyes nml inspection Ears, Nose, Throat Exam: normal ENT inspection Neck Exam: normal inspection, non-tender, supple, full range of motion, No meningismus, No midline tenderness Respiratory Exam: normal breath sounds, lungs clear, No respiratory distress Cardiovascular Exam: regular rate/rhythm, normal heart sounds Gastrointestinal Exam: soft, No tenderness, No distention, No mass, No guarding Male Genetalia Exam: normal genitalia Rectal Exam: deferred Back Exam: normal inspection, muscle spasm Extremity Exam: normal inspection, normal range of motion, No calf tenderness, No pedal edema Peripheral Pulses: carotid (R): 2+, carotid (L): 2+, femoral (R): 2+, femoral (L): 2+, dorsalis-pedis (R): 2+, dorsalis-pedis (L): 2+ Neurologic Exam: alert, oriented x 3, cooperative, 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 tested, normal mood/affect, nml station & gait, sensation nml, No motor deficits Skin Exam: normal color, warm, dry, No rash SpO2 Interpretation: normal SpO2: 96 O2 Delivery: Room Air - Course Nursing assessment & vital signs reviewed: Yes EKG Interpreted by Me: Sinus Rhythm, Right Bundle Branch Block, Non-specific ST Changes - CT Exams Abdomen/Pelvis CT Interpretation: Tele-radiologist Report, DJD, No Fracture, Other (DDD) Ordered Tests: Active Orders 24 hr Category Date Time Status EKG-ER Only STAT Care 12/20/22 17:18 Active IV Insertion STAT Care 12/20/22 17:18 Active ABDOMEN AND PELVIS W/0 CONTRAS [CT] Stat Exams 12/20/22 17:19 Completed RECONSTRUCTION [CT] Stat Exams 12/20/22 17:21 Taken AMYLASE Stat Lab 12/20/22 17:42 Completed CBC W DIFF Stat Lab 12/20/22 17:42 Completed CMP Stat Lab 12/20/22 17:42 Completed LIPASE Stat Lab 12/20/22 17:42 Completed Lactic Acid Stat Lab 12/20/22 17:39 Completed PT INR [PROTIME WITH INR] Stat Lab 12/20/22 17:42 Completed TROPONIN Q4H Lab 12/20/22 17:42 Completed TROPONIN Q4H Lab 12/20/22 21:30 Ordered TROPONIN Q4H Lab 12/21/22 01:30 Ordered UA W/RFX UR CULTURE Stat Lab 12/20/22 17:22 Completed Medication Summary Generic Name Dose Route Start Last Admin Trade Name Freq PRN Reason Stop Dose Admin Sodium Chloride 1,000 mls @ 100 mls/hr 12/20/22 17:30 12/20/22 18:23 Sodium Chloride 0.9% 1000 Ml IV 01/19/23 17:29 100 mls/hr .Q10H DIO Administration Discontinued Medications Generic Name Dose Route Start Last Admin Trade Name Freq PRN Reason Stop Dose Admin Diphenhydramine HCl Confirm 12/20/22 18:44 Diphenhydramine Hcl 50 Mg/Ml Vial Administered 12/20/22 18:45 Dose 50 mg .ROUTE .STK-MED ONE Diphenhydramine HCl 25 mg 12/20/22 18:52 12/20/22 18:53 Diphenhydramine Hcl 50 Mg/Ml Vial IV 12/20/22 18:53 25 mg STAT ONE Administration Hydromorphone HCl 1 mg 12/20/22 20:36 12/20/22 20:47 Hydromorphone 1 Mg/1ml Inj IV 12/20/22 20:37 1 mg STAT ONE Administration Hydromorphone HCl Confirm 12/20/22 20:46 Hydromorphone 1 Mg/1ml Inj Administered 12/20/22 20:47 Dose 1 mg .ROUTE .STK-MED ONE Morphine Sulfate Confirm 12/20/22 18:44 Morphine Sulfate 4 Mg/Ml Injection Administered 12/20/22 18:45 Dose 4 mg .ROUTE .STK-MED ONE Morphine Sulfate 4 mg 12/20/22 18:51 12/20/22 18:52 Morphine Sulfate 4 Mg/Ml Injection IV 12/20/22 18:52 4 mg STAT ONE Administration Ondansetron HCl 4 mg 12/20/22 17:18 12/20/22 18:25 Ondansetron Hcl 4 Mg/2 Ml Vial IV 12/20/22 17:19 Not Given STAT ONE Ondansetron HCl Confirm 12/20/22 18:21 Ondansetron Hcl 4 Mg/2 Ml Vial Administered 12/20/22 18:22 Dose 4 mg .ROUTE .STK-MED ONE Lab/Rad Data: Laboratory Result Diagrams 12/20/22 17:42 12/20/22 17:42 Laboratory Results 12/20/22 12/20/22 12/20/22 Range/Units 17:42 17:42 17:42 WBC (4.0-10.5) x10^3/uL RBC (4.1-5.6) x10^6/uL Hgb (12.5-18.0) g/dL Hct (42-50) % MCV (78-100) fL MCH (26-32) pg MCHC (32-36) g/dL RDW (11.5-14.0) % Plt Count (150-450) x10^3/uL MPV (7.5-11.0) fL Gran % (36.0-66.0) % Immature Gran % (Auto) (0.00-0.4) % Nucleat RBC Rel Count (0.00-0.1) % Eos # (Auto) (0-0.5) x10^3/uL Immature Gran # (Auto) (0.00-0.03) x10^3u/L Absolute Lymphs (auto) (1.0-4.6) x10^3/uL Absolute Monos (auto) (0.0-1.3) x10^3/uL Absolute Nucleated RBC (0.00-0.01) x10^3u/L Lymphocytes % (24.0-44.0) % Monocytes % (0.0-12.0) % Eosinophils % (0.00-5.0) % Basophils % (0.0-0.4) % Absolute Granulocytes (1.4-6.9) x10^3/uL Basophils # (0-0.4) x10^3/uL PT 34.9 H (9.4-12.5) SECONDS INR 3.51 H (0.8-3.0) Sodium 140 (137-145) mmol/L Potassium 4.0 (3.5-5.1) mmol/L Chloride 106 (98-107) mmol/L Carbon Dioxide 30 (22-30) mmol/L Anion Gap 8.8 (5-15) MEQ/L BUN 15 (9-20) mg/dL Creatinine 0.66 (0.66-1.25) mg/dL Estimated GFR > 60.0 ML/MIN Glucose 93 (74-106) mg/dL Lactic Acid (0.4-2.0) Calcium 8.2 L (8.4-10.2) mg/dL Total Bilirubin 0.70 (0.2-1.3) mg/dL AST 29 (17-59) U/L ALT 27 (0-50) U/L Alkaline Phosphatase 61 (38-126) U/L Troponin I 0.018 (0.000-0.034) ng/mL Serum Total Protein 6.3 (6.3-8.2) g/dL Albumin 3.8 (3.5-5.0) g/dL Amylase 75 (30-110) U/L Lipase 74 (23-300) U/L Urine Color (Yellow) Urine Appearance (Clear) Urine pH (4.6-8.0) Ur Specific [place] (1.005-1.030) Urine Protein (Negative) Urine Glucose (UA) (Negative) mg/dL Urine Ketones (Negative) Urine Blood (Negative) Urine Nitrite (Negative) Urine Bilirubin (Negative) Urine Urobilinogen (0.2) mg/dL Ur Leukocyte Esterase (Negative) U Hyaline Cast (Auto) (0-2) /LPF Urine Microscopic RBC (0-5) /HPF Urine Microscopic WBC (0-5) /HPF Ur Epithelial Cells (None Seen) /HPF Urine Bacteria (None Seen) /HPF Urine Culture Reflexed (NO) 12/20/22 12/20/22 12/20/22 Range/Units 17:42 17:39 17:22 WBC 9.7 (4.0-10.5) x10^3/uL RBC 4.88 (4.1-5.6) x10^6/uL Hgb 14.8 (12.5-18.0) g/dL Hct 45.6 (42-50) % MCV 93.4 (78-100) fL MCH 30.3 (26-32) pg MCHC 32.5 (32-36) g/dL RDW 13.1 (11.5-14.0) % Plt Count 175 (150-450) x10^3/uL MPV 9.7 (7.5-11.0) fL Gran % 57.2 (36.0-66.0) % Immature Gran % (Auto) 0.4 (0.00-0.4) % Nucleat RBC Rel Count 0.0 (0.00-0.1) % Eos # (Auto) 0.32 (0-0.5) x10^3/uL Immature Gran # (Auto) 0.04 H (0.00-0.03) x10^3u/L Absolute Lymphs (auto) 3.05 (1.0-4.6) x10^3/uL Absolute Monos (auto) 0.71 (0.0-1.3) x10^3/uL Absolute Nucleated RBC 0.00 (0.00-0.01) x10^3u/L Lymphocytes % 31.3 (24.0-44.0) % Monocytes % 7.3 (0.0-12.0) % Eosinophils % 3.3 (0.00-5.0) % Basophils % 0.5 (0.0-0.4) % Absolute Granulocytes 5.56 (1.4-6.9) x10^3/uL Basophils # 0.05 (0-0.4) x10^3/uL PT (9.4-12.5) SECONDS INR (0.8-3.0) Sodium (137-145) mmol/L Potassium (3.5-5.1) mmol/L Chloride (98-107) mmol/L Carbon Dioxide (22-30) mmol/L Anion Gap (5-15) MEQ/L BUN (9-20) mg/dL Creatinine (0.66-1.25) mg/dL Estimated GFR ML/MIN Glucose (74-106) mg/dL Lactic Acid 1.1 (0.4-2.0) Calcium (8.4-10.2) mg/dL Total Bilirubin (0.2-1.3) mg/dL AST (17-59) U/L ALT (0-50) U/L Alkaline Phosphatase (38-126) U/L Troponin I (0.000-0.034) ng/mL Serum Total Protein (6.3-8.2) g/dL Albumin (3.5-5.0) g/dL Amylase (30-110) U/L Lipase (23-300) U/L Urine Color Yellow (Yellow) Urine Appearance Clear (Clear) Urine pH 5.5 (4.6-8.0) Ur Specific [place] 1.015 (1.005-1.030) Urine Protein Negative (Negative) Urine Glucose (UA) Negative (Negative) mg/dL Urine Ketones Negative (Negative) Urine Blood NHT (Negative) Urine Nitrite Negative (Negative) Urine Bilirubin Negative (Negative) Urine Urobilinogen 0.2 (0.2) mg/dL Ur Leukocyte Esterase Negative (Negative) U Hyaline Cast (Auto) NONE SEEN (0-2) /LPF Urine Microscopic RBC 0-2 (0-5) /HPF Urine Microscopic WBC 0-2 (0-5) /HPF Ur Epithelial Cells None Seen (None Seen) /HPF Urine Bacteria None Seen (None Seen) /HPF Urine Culture Reflexed NO (NO) - Progress Progress: improved, re-examined Progress Note: 12/20/22 21:08 pain is much better after treatment discussed risk/benefit with pt and and will give iv steroid then dospak and he will also reduce coumaden due to high INR, and f/u for PMD to follow coag and for furhter w/u of back and pain. He is advised that there still could be undetected pathology and that furhter w/u is required to be sure and have best Tx - he understands. Counseled pt/family regarding: lab results, diagnosis, need for follow-up, rad results Medical Desision Making - Independent Historian Additional History obtained from: Spouse - Discussion of managment Reviewed:: Test results, Need for additional workup Agreed on:: Treatment plan, need for follow-up - Diagnostic Testing Diagnostic test were ordered, analyzed, and reviewed by me: Yes Radiological Interpretation: Teleradiologist Report - Risk of complications The pt has a mod risk of morbidity or mortality based on: Need for prescription drug management The pt has a high risk of morbidity or mortality based on: Drug therapy requiring intensive monitoring for toxicity, Decision regarding hospitilization or escalation of hosp level of care - Departure Departure Disposition: Home Clinical Impression: DDD (degenerative disc disease), lumbar, back pain, lumbar radiculopathy Condition: Good Critical Care Time: No Referrals: JULIENNE INGRAM [Primary Care Provider] - Follow up/PCP as directed Instructions: Low Back Pain (DC), Sciatica (DC), Degenerative Disc Disease (DC) Additional Instructions: followup with your DrsRich and hold coumaden tonight as planned and give them a c all tomorrow for further direction. return meantime if any concernss, bowel or bladder symptoms, fever, abdominal pain or other concerns. followup also with your DrRich for blood pressure. Prescriptions: Methylprednisolone 4 mg [Medrol 4 mg] 4 mg PO UD #1 packet
[2022-12-20] MEDS ORDERED: Zofran 4 MG/2 ML VIAL IV ONE (17:18)
[2022-12-20 17:23] VITALS: RESP 18; TEMP 98.4
[2022-12-20] MEDS ORDERED: Sodium Chloride 0.9% 1000 ML 1,000 ML IV SCH (17:30)
[2022-12-20 17:32] LABS: Appearance Clear (Clear); Bacteria None Seen /HPF (None Seen); Bilirubin Negative (Negative); Blood NHT (Negative); Epithelial Cells None Seen /HPF (None Seen); Glucose, Urine Negative (Negative); Hyaline Casts NONE SEEN /LPF (0-2); Ketones Negative (Negative); Leukocyte Esterase Negative (Negative); Nitrite Negative (Negative); Ph 5.5 (4.6-8.0); Protein,Urine Dip Negative (Negative); RBC 0-2 /HPF (0-5); Specific Gravity 1.015 (1.005-1.030); Urobilinogen 0.2 mg/dL (0.2); WBC 0-2 /HPF (0-5)
[2022-12-20 17:44] LABS: ADD URINE CULTURE? NO (NO)
[2022-12-20 17:46] LABS: Absolute Neutrophil Ct (ANC) 5.56 x10^3/uL (1.4-6.9); BASOPHIL % 0.5 % (0.0-0.4); Basophil (Absolute #) 0.05 x10^3/uL (0-0.4); Eosinophil % 3.3 % (0.00-5.0); Eosinophil (Absolute #) 0.32 x10^3/uL (0-0.5); Hematocrit 45.6 % (42-50); Hemoglobin 14.8 g/dL (12.5-18.0); IMMATURE GRAN # 0.04 x10^3u/L (0.00-0.03); IMMATURE GRAN % 0.4 % (0.00-0.4); Lymphocyte (Absolute #) 3.05 x10^3/uL (1.0-4.6); Lymphocytes % 31.3 % (24.0-44.0); Mean Cell Volume 93.4 fL (78-100); Mean Corpuscular Hemoglobin 30.3 pg (26-32); Mean Corpuscular Hgb Concent. 32.5 g/dL (32-36); Mean Platelet Volume 9.7 fL (7.5-11.0); Monocyte (Absolute #) 0.71 x10^3/uL (0.0-1.3); Monocytes % 7.3 % (0.0-12.0); Neutrophil % 57.2 % (36.0-66.0); Platelet Count 175 x10^3/uL (150-450); Red Blood Count 4.88 x10^6/uL (4.1-5.6); Red Cell Distribution Width 13.1 % (11.5-14.0); White Blood Count 9.7 x10^3/uL (4.0-10.5)
[2022-12-20 17:58] LABS: INR 3.51 (0.8-3.0); PROTIME 34.9 SECONDS (9.4-12.5)
[2022-12-20 18:00] LABS: ALBUMIN 3.8 g/dL (3.5-5.0); ALKALINE PHOSPHATASE 61 U/L (38-126); AMYLASE 75 U/L (30-110); ANION GAP 8.8 MEQ/L (5-15); BLOOD UREA NITROGEN 15 mg/dL (9-20); CHLORIDE 106 mmol/L (98-107); Calcium 8.2 mg/dL (8.4-10.2); Carbon Dioxide 30 mmol/L (22-30); Creatinine 1 0.66 mg/dL (0.66-1.25); EST GLOMERULAR FILTRATION RATE > 60.0 ML/MIN; Glucose 93 mg/dL (74-106); LIPASE 74 U/L (23-300); SGOT/AST 29 U/L (17-59); SGPT/ALT 27 U/L (0-50); SODIUM 140 mmol/L (137-145); Total Protein 6.3 g/dL (6.3-8.2)
[2022-12-20] MEDS ORDERED: Sodium Chloride 0.9% 1000 ML 1,000 ML ONE (18:21)
[2022-12-20] MEDS ORDERED: Zofran 4 MG/2 ML VIAL ONE (18:21)
[2022-12-20] MEDS ORDERED: BENADRYL 50 MG/ML ONE (18:44)
[2022-12-20] MEDS ORDERED: MORPHINE SULFATE 4 MG INJ ONE (18:44)
[2022-12-20] MEDS ORDERED: MORPHINE SULFATE 4 MG INJ IV ONE (18:51)
[2022-12-20] MEDS ORDERED: BENADRYL 50 MG/ML IV ONE (18:52)
--- NOTE | 2022-12-20 19:26 | XRAY ---
CLINICAL HISTORY:new onset back pain with nausea COMPARISON:None. TECHNIQUE:A CT scan of the abdomen and pelvis was performed without IV contrast. Coronal and sagittal reconstructive images were also obtained. FINDINGS: Abdomen: The liver is increased in size and measures 18 cm. Diffuse parenchymal hypoattenuation. The portal vein, intrahepatic biliary radicals, and the bile ducts are normal. The spleen shows multiple calcified foci noted The pancreas and adrenal glands are unremarkable. The kidneys are unremarkable. They are normal in size and shape. No calculi or hydronephrosis. The gallbladder is normal. No pericholecystic collection or radio-dense calculi in the gall bladder. The large bowel shows multiple diverticulae. There is no evidence of significant enlargement of the mesenteric or retroperitoneal lymph nodes. Pelvis: The urinary bladder is unremarkable. The rectosigmoid colon is unremarkable. The prostate is enlarged and measures 4.3x 5.5x 3.3 cm. The pelvic vasculature shows wall calcification. No evidence of pelvic lymphadenopathy. The osseous structures in the pelvis, lower rib cage, and lumbar spine show no abnormality. No lytic or sclerotic bone lesions. Advanced degenerative changes of the lumbar spine with ventral osteophytic lipping, L2-L3 subchondral sclerosis, L5-S1 vacuum phenomenon, narrow disc spaces, and L2 over L3, L3 over L4 and L5 over S1 retrolisthesis. IMPRESSION: 1. Mild hepatomegaly likely fatty infiltration. 2. The spleen shows multiple calcified foci noted likely old granulomatous infection. 3. Advanced degenerative changes of the lumbar spine with ventral osteophytic lipping, L2-L3 subchondral sclerosis, L5-S1 vacuum phenomenon, narrow disc spaces and L2 over L3, L3 over L4 and L5 over S1 retrolisthesis for MRI evaluation. 4. The large bowel shows multiple diverticulae. 5. Mild prostatic enlargement. Electronically Signed by: Ta Nelson MD. (12/20/2022 18:24:54 EMBEDDED FIRMWARE ENGINEER)
[2022-12-20] MEDS ORDERED: Hydromorphone 1 mg/ml Injection IV ONE (20:36)
[2022-12-20] MEDS ORDERED: Hydromorphone 1 mg/ml Injection ONE (20:46)
--- NOTE | 2022-12-20 21:08 | XRAY ---
CLINICAL HISTORY:back pain COMPARISON:A CT scan of the abdomen and pelvis dated 12/20/2022 was reviewed. TECHNIQUE:A CT scan without contrast lumbar spine was done. Axial images were obtained with reformatted coronal and sagittal images and submitted for interpretation. FINDINGS: The physiologic lumbar lordosis is maintaned. There is grade I retrolisthesis of L2 over L3, L3 over L4 and L5 over S1. Advanced degeneration with ventral osteophytic lipping, L2 and L3 subchondral sclerosis, vacuum phenomenon and narrow disc spaces is noted. Normal vertebral bodies height. Intact vertebral bodies and neural arches. No definite fractures could be detected. Segmental disc analysis level by level: L1- L2: There is no significant disc herniation or neural foraminal narrowing visualized. Central canal is unremarkable. No sign of lateral recess stenosis. Nerve roots are normal. L2- L3: There is diffuse pseudo disc bulge measureing 2.4 indenting the thecal sac compromising subarticular recesses. There is mild central canal stenosis and mild bilateral neural foraminal stenosis. Buckled ligamenta flava and arthropathic facet joints augment effects. L3- L4: There is diffuse pseudo disc bulge measureing 4.8 indenting the thecal sac compromising subarticular recesses. There is mild central canal stenosis and mild bilateral neural foraminal stenosis. Buckled ligamenta flava and arthropathic facet joints augment effects. L4- L5: There is diffuse disc bulge measureing 3.7 indenting the thecal sac compromising subarticular recesses. There is mild central canal stenosis and mild bilateral neural foraminal stenosis. Buckled ligamenta flava and arthropathic facet joints augment effects. L5- S1: There is diffuse pseudo disc bulge measureing 4.2 indenting the thecal sac compromising subarticular recesses. There is mild central canal stenosis and mild bilateral neural foraminal stenosis. Buckled ligamenta flava and arthropathic facet joints augment effects. There are small sclerotic foci in the bilateral sacrum, likely enostoses. IMPRESSION: Advanced degeneration with ventral osteophytic lipping, L2 and L3 subchondral sclerosis, vacuum phenomenon and narrow disc spaces Retrolisthesis of L2 over L3, L3 over L4 and L5 over S1 Multiple level disc bulges as described MRI is suggested if clinically warranted. Electronically Signed by: Ta Nelson MD. (12/20/2022 20:08:38 ZONE MAINTENANCE TECHNICIAN)
[2022-12-20 22:02] VITALS: BP 128/86; PULSE 89; O2SAT 92
== END 2022-12-20 21:50 | disposition home or self-care (01) ==
LOC: ED 16:50
DX: M51.16 Intervertebral disc disorders with radiculopathy, lumbar region (principal); M54.50 Low back pain, unspecified; Z79.01 Long term (current) use of anticoagulants; Z79.899 Other long term (current) drug therapy; Z79.52 Long term (current) use of systemic steroids
CPT/HCPCS: 36000; 36415; 74176; 76376; 80053; 81001; 82150; 83605; 83690; 84484; 85025; 85610; 93005; 96374; 96375; 99284; J1170; J1200; J2270; J2405

== ENCOUNTER 2024-02-11 14:30 | Emergency (ER) | payer BC ==
[2024-02-11 14:47] VITALS: TEMP 97.4
--- NOTE | 2024-02-11 16:01 | ERPHSYRPT ---
- History of Present Illness Time Seen by Provider: 02/11/24 16:00 Historian: patient, family Exam Limitations: no limitations Patient Subjective Stated Complaint: pt reports right sided back/flank pain that radiates down into his groin. pt reports nausea. states he is unable to find a position of comfort. pt has hx of kidney stone many years ago. Triage Nursing Assessment: pt is aox3, appears in pain, afebrile, resps easy and non labored, pt radial pulses strong and equal, cap refill < 3 seconds, pt skin pink warm dry. Physician History: Pt had onset of right flank and abd pain radiating to right groin. Discussed with pt and available family risks and benefits of testing/Tx including CBC, CMP, UA, Amylase, Lipase, CT Abd pain med, and they wish to proceed so these are ordered. Results discussed with pt and available family. Spouse / family was present in ER to serve as independent source to confirm/collaborate the History. Hx COPD and Ht valve and aneurysm - noCP or SObreath at this time and doing well with these conditions stable by Hx . Prior Hx renal stone years ago. Timing/Duration: today Activities at Onset: none Quality: burning, sharpness Abdominal Pain Onset Location: RLQ, flank Pain Radiation: RLQ, groin, back Severity of Pain-Max: moderate Severity of Pain-Current: moderate Associated Symptoms: back Previous symptoms: other (remote renal stone hx) Allergies/Adverse Reactions: No Known Drug Allergies Allergy (Verified 02/11/24 14:46) Home Medications: Ipratropium/Albuterol Sulfate [Iprat-Albut 0.5-3(2.5) mg/3 ml] 3 ml IH QID PRN 01/26/21 [History] Levothyroxine Sodium [Synthroid] 175 mcg PO DAILY 01/26/21 [History] Rosuvastatin Calcium 10 mg PO HS 01/26/21 [History] Warfarin Sodium 5 mg [Coumadin 5 MG] 2.5 mg PO DAILY 01/26/21 [History] Metoprolol Tartrate 25 mg [Lopressor 25MG Tab] 25 mg PO DAILY 02/11/24 [History] Hx Tetanus, Diphtheria Vaccination/Date Given: (unk) Hx Influenza Vaccination/Date Given: No Hx Pneumococcal Vaccination/Date Given: Yes Immunizations Up to Date: Yes Travel Risk - International Travel Have you traveled outside of the country in past 3 weeks: No - Emerging Infectious Disease Are you exhibiting symptoms associated with any current EIDs: No - Review of Systems Constitutional: No Fever, No Chills Eyes: No Symptoms Ears, Nose, & Throat: No Symptoms Respiratory: No Cough, No Dyspnea Cardiac: No Chest Pain, No Edema, No Syncope Abdominal/Gastrointestinal: Abdominal Pain, No Nausea, No Vomiting, No Diarrhea Genitourinary Symptoms: No Dysuria Musculoskeletal: Back Pain, No Neck Pain Skin: No Rash Neurological: No Dizziness, No Focal Weakness, No Sensory Changes Psychological: No Symptoms Endocrine: No Symptoms Hematologic/Lymphatic: No Symptoms Immunological/Allergic: No Symptoms All Other Systems: Reviewed and Negative - Past Medical History Pertinent Past Medical History: Yes Cardiac History: Other Respiratory History: COPD Endocrine Medical History: Thyroid Cancer Other Medical History: Aortic valve replacement 1995, 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 - Past Surgical History Past Surgical History: Yes Cardiac: Valve Replacement Other Surgical History: thyroid removed Significant Family History: no pertinent family hx - Social History Smoking Status: Former smoker How long have you smoked: 30 years Exposure to second hand smoke: No Drug Use: none Patient Lives Alone: No - Social Determinants of Health Will the patient participate in the screening: Unable to obtain - Nursing Vital Signs Nursing Vital Signs: Initial Vital Signs Temperature 97.4 F 02/11/24 14:38 Pulse Rate 56 L 02/11/24 14:38 Respiratory Rate 18 02/11/24 14:38 Blood Pressure 145/94 02/11/24 14:38 O2 Sat by Pulse Oximetry 95 02/11/24 14:38 Pain Scale Pain Intensity 4 - Physical Exam General Appearance: no apparent distress, alert Eye Exam: PERRL/EOMI, eyes nml inspection Ears, Nose, Throat Exam: normal ENT inspection, pharynx normal, moist mucous membranes Neck Exam: normal inspection, non-tender, supple, full range of motion Respiratory Exam: normal breath sounds, lungs clear, No respiratory distress Cardiovascular Exam: regular rate/rhythm, normal heart sounds Gastrointestinal/Abdomen Exam: soft, No tenderness, No distention, No mass, No guarding, No pulsatile mass, No rebound Rectal Exam: deferred Back Exam: normal inspection, normal range of motion, No CVA tenderness, No vertebral tenderness Extremity Exam: normal inspection, normal range of motion, pelvis stable Neurologic Exam: alert, oriented x 3, cooperative, normal mood/affect, nml cerebellar function, sensation nml, No motor deficits Skin Exam: normal color, warm, dry SpO2 Interpretation: normal (hx COPD) SpO2: 95 O2 Delivery: Room Air - Course Nursing assessment & vital signs reviewed: Yes - CT Exams Chest CT Interpretation: Tele-radiologist Report, Other (gran Dx, stable Aneurysm and AVR. No infilttrates) Abdomen/Pelvis CT Interpretation: Tele-radiologist Report, Normal Appendix, Other (DJD L2-3 no stone seen, diverticular Dx nonacute. ) Ordered Tests: Active Orders 24 hr Category Date Time Status IV Insertion STAT Care 02/11/24 16:01 Active Oxygen-ED Only Nasal Cannula 2 lpm Care 02/11/24 16:12 Active ABDOMEN AND PELVIS W/0 CONTRAS [CT] Stat Exams 02/11/24 16:01 Completed CHEST WITHOUT CONTRAST [CT] Stat Exams 02/11/24 16:04 Completed AMYLASE Stat Lab 02/11/24 16:03 Completed CBC W DIFF Stat Lab 02/11/24 16:03 Completed CMP Stat Lab 02/11/24 16:03 Completed LIPASE Stat Lab 02/11/24 16:03 Completed Lactic Acid Stat Lab 02/11/24 16:10 Completed UA W/RFX UR CULTURE Stat Lab 02/11/24 16:03 Completed Medication Summary Discontinued Medications Generic Name Dose Route Start Last Admin Trade Name Freq PRN Reason Stop Dose Admin Morphine Sulfate 8 mg 02/11/24 16:01 02/11/24 16:06 Morphine Sulfate 10 Mg/Ml Injection IV 02/11/24 16:02 8 mg STAT ONE Administration Morphine Sulfate Confirm 02/11/24 16:04 Morphine Sulfate 10 Mg/Ml Injection Administered 02/11/24 16:05 Dose 10 mg .ROUTE .STK-MED ONE Ondansetron HCl 4 mg 02/11/24 16:01 02/11/24 16:06 Ondansetron Hcl 4 Mg/2 Ml Vial IV 02/11/24 16:02 4 mg STAT ONE Administration Ondansetron HCl Confirm 02/11/24 16:04 Ondansetron Hcl 4 Mg/2 Ml Vial Administered 02/11/24 16:05 Dose 4 mg .ROUTE .STK-MED ONE Lab/Rad Data: Laboratory Result Diagrams 02/11/24 16:03 02/11/24 16:03 Laboratory Results 02/11/24 02/11/24 02/11/24 Range/Units 16:10 16:03 16:03 WBC 10.1 H (4.23-9.07) x10^3/uL RBC 5.40 (4.63-6.08) x10^6/uL Hgb 15.7 (13.7-17.5) g/dL Hct 48.4 (40.1-51.0) % MCV 89.6 (79.0-92.2) fL MCH 29.1 (25.7-32.2) pg MCHC 32.4 (32.3-36.5) g/dL RDW 13.0 (11.6-14.4) % Plt Count 204 (163-337) x10^3/uL MPV 10.8 (9.4-12.4) fL Gran % 63.4 (34.0-67.9) % Immature Gran % (Auto) 0.3 (0.001-0.429) % Nucleat RBC Rel Count 0.0 (0.00-0.2) % Eos # (Auto) 0.36 (0.04-0.54) x10^3/uL Immature Gran # (Auto) 0.03 (0.001-0.031) x10^3u/L Absolute Lymphs (auto) 2.46 (1.32-3.57) x10^3/uL Absolute Monos (auto) 0.80 (0.30-0.82) x10^3/uL Absolute Nucleated RBC 0.00 (0.00-0.012) x10^3u/L Lymphocytes % 24.4 (21.8-53.1) % Monocytes % 7.9 (5.3-12.2) % Eosinophils % 3.6 (0.8-7.0) % Basophils % 0.4 (0.2-1.2) % Absolute Granulocytes 6.40 H (1.78-5.38) x10^3/uL Basophils # 0.04 (0.01-0.08) x10^3/uL Sodium 139 (135-145) mmol/L Potassium 4.4 (3.5-5.1) mmol/L Chloride 103 (98-107) mmol/L Carbon Dioxide 35 H (22-30) mmol/L Anion Gap 6.4 (5-15) MEQ/L BUN 19 (9-20) mg/dL Creatinine 1.25 (0.66-1.25) mg/dL Estimated GFR 64.3 ML/MIN Glucose 104 (74-106) mg/dL Lactic Acid 0.9 (0.4-2.0) Calcium 8.9 (8.4-10.2) mg/dL Total Bilirubin 0.80 (0.2-1.3) mg/dL AST 29 (17-59) U/L ALT 27 (0-50) U/L Alkaline Phosphatase 68 (38-126) U/L Serum Total Protein 6.9 (6.3-8.2) g/dL Albumin 4.1 (3.5-5.0) g/dL Amylase 89 (30-110) U/L Lipase 99 (23-300) U/L Urine Color (Yellow) Urine Appearance (Clear) Urine pH (4.6-8.0) Ur Specific [place] (1.005-1.030) Urine Protein (Negative) Urine Glucose (UA) (Negative) mg/dL Urine Ketones (Negative) Urine Blood (Negative) Urine Nitrite (Negative) Urine Bilirubin (Negative) Urine Urobilinogen (0.2) mg/dL Ur Leukocyte Esterase (Negative) U Hyaline Cast (Auto) (0-2) /LPF Urine Microscopic RBC (0-5) /HPF Urine Microscopic WBC (0-5) /HPF Ur Epithelial Cells (None Seen) /HPF Urine Bacteria (None Seen) /HPF Urine Culture Reflexed (NO) 02/11/24 Range/Units 16:03 WBC (4.23-9.07) x10^3/uL RBC (4.63-6.08) x10^6/uL Hgb (13.7-17.5) g/dL Hct (40.1-51.0) % MCV (79.0-92.2) fL MCH (25.7-32.2) pg MCHC (32.3-36.5) g/dL RDW (11.6-14.4) % Plt Count (163-337) x10^3/uL MPV (9.4-12.4) fL Gran % (34.0-67.9) % Immature Gran % (Auto) (0.001-0.429) % Nucleat RBC Rel Count (0.00-0.2) % Eos # (Auto) (0.04-0.54) x10^3/uL Immature Gran # (Auto) (0.001-0.031) x10^3u/L Absolute Lymphs (auto) (1.32-3.57) x10^3/uL Absolute Monos (auto) (0.30-0.82) x10^3/uL Absolute Nucleated RBC (0.00-0.012) x10^3u/L Lymphocytes % (21.8-53.1) % Monocytes % (5.3-12.2) % Eosinophils % (0.8-7.0) % Basophils % (0.2-1.2) % Absolute Granulocytes (1.78-5.38) x10^3/uL Basophils # (0.01-0.08) x10^3/uL Sodium (135-145) mmol/L Potassium (3.5-5.1) mmol/L Chloride (98-107) mmol/L Carbon Dioxide (22-30) mmol/L Anion Gap (5-15) MEQ/L BUN (9-20) mg/dL Creatinine (0.66-1.25) mg/dL Estimated GFR ML/MIN Glucose (74-106) mg/dL Lactic Acid (0.4-2.0) Calcium (8.4-10.2) mg/dL Total Bilirubin (0.2-1.3) mg/dL AST (17-59) U/L ALT (0-50) U/L Alkaline Phosphatase (38-126) U/L Serum Total Protein (6.3-8.2) g/dL Albumin (3.5-5.0) g/dL Amylase (30-110) U/L Lipase (23-300) U/L Urine Color Yellow (Yellow) Urine Appearance Cloudy A (Clear) Urine pH 7.5 (4.6-8.0) Ur Specific [place] 1.020 (1.005-1.030) Urine Protein Trace A (Negative) Urine Glucose (UA) Negative (Negative) mg/dL Urine Ketones Negative (Negative) Urine Blood Negative (Negative) Urine Nitrite Negative (Negative) Urine Bilirubin Negative (Negative) Urine Urobilinogen 0.2 (0.2) mg/dL Ur Leukocyte Esterase Negative (Negative) U Hyaline Cast (Auto) NONE SEEN (0-2) /LPF Urine Microscopic RBC 3-5 (0-5) /HPF Urine Microscopic WBC 0-2 (0-5) /HPF Ur Epithelial Cells None Seen (None Seen) /HPF Urine Bacteria None Seen (None Seen) /HPF Urine Culture Reflexed NO (NO) - Progress Progress: improved, re-examined Progress Note: 02/11/24 17:35 discussed limitations of testing performed and that we have not yet determined a cause for his symptoms although it could be DDD/DJD or still an undetected renal stone but it could also be other serious pathology including vascular, cardiac, abdominal or other. He prefers to f/u PMD outpt rather than further w/u in ER at this time and declines admission at this time and has the capacity to make this choice. . Counseled pt/family regarding: lab results, diagnosis, need for follow-up, rad results Medical Desision Making - Discussion of managment Reviewed:: Test results, Need for additional workup Agreed on:: Treatment plan, need for follow-up - Diagnostic Testing Diagnostic test were ordered, analyzed, and reviewed by me: Yes Radiological Interpretation: Interpreted by me, Reviewed by me, Teleradiologist Report - Risk of complications The pt has a mod risk of morbidity or mortality based on: Need for prescription drug management The pt has a high risk of morbidity or mortality based on: Decision regarding hospitilization or escalation of hosp level of care - Departure Departure Disposition: Home Clinical Impression: LBP radiating to rt groin unknown cause, Microhematuria Condition: Good Critical Care Time: No Referrals: JULIENNE INGRAM [Primary Care Provider] - Follow up/PCP as directed Instructions: Low Back Pain (DC), Blood in Urine (Hematuria), Adult ED, Diverticulosis (DC) Additional Instructions: We have not yet found the cause for your symptoms but there is a trace of blood in urine which still could be a stone. strain urine for stones. There is also Arthritis in the spine at the level of your symptoms but we cannot be sure that is the cause - so it is important to followup with your DrRich for further workup and return meantime if not improving or if other symptoms of concern such as numbness , bowel or bladder symptoms, vomiting, dizziness, stomach pain, fever, or other symptoms of concern.
[2024-02-11] MEDS ORDERED: Zofran 4 MG/2 ML VIAL ONE (16:04)
[2024-02-11] MEDS ORDERED: MORPHINE SULFATE 10 MG/ML ONE (16:04)
[2024-02-11] MEDS: MORPHINE SULFATE 10 MG/ML IV ONE (16:06)
[2024-02-11] MEDS: Zofran 4 MG/2 ML VIAL IV ONE (16:06)
[2024-02-11 16:09] LABS: BASOPHIL % 0.4 % (0.2-1.2); Basophil (Absolute #) 0.04 x10^3/uL (0.01-0.08); Eosinophil % 3.6 % (0.8-7.0); Eosinophil (Absolute #) 0.36 x10^3/uL (0.04-0.54); Hematocrit 48.4 % (40.1-51.0); Hemoglobin 15.7 g/dL (13.7-17.5); IMMATURE GRAN # 0.03 x10^3u/L (0.001-0.031); IMMATURE GRAN % 0.3 % (0.001-0.429); Lymphocyte (Absolute #) 2.46 x10^3/uL (1.32-3.57); Lymphocytes % 24.4 % (21.8-53.1); Mean Cell Volume 89.6 fL (79.0-92.2); Mean Corpuscular Hemoglobin 29.1 pg (25.7-32.2); Mean Corpuscular Hgb Concent. 32.4 g/dL (32.3-36.5); Mean Platelet Volume 10.8 fL (9.4-12.4); Monocytes % 7.9 % (5.3-12.2); Neutrophil % 63.4 % (34.0-67.9); Platelet Count 204 x10^3/uL (163-337); White Blood Count 10.1 x10^3/uL (4.23-9.07)
[2024-02-11 16:13] LABS: ALBUMIN 4.1 g/dL (3.5-5.0); ANION GAP 6.4 MEQ/L (5-15); BILIRUBIN,TOTAL 0.8 mg/dL (0.2-1.3); Calcium 8.9 mg/dL (8.4-10.2); Creatinine 1 1.25 mg/dL (0.66-1.25); EST GLOMERULAR FILTRATION RATE 64.3 ML/MIN; Potassium 4.4 mmol/L (3.5-5.1); Total Protein 6.9 g/dL (6.3-8.2)
[2024-02-11 16:15] LABS: Appearance Cloudy (Clear); Bacteria None Seen /HPF (None Seen); Bilirubin Negative (Negative); Blood Negative (Negative); Epithelial Cells None Seen /HPF (None Seen); Glucose, Urine Negative (Negative); Hyaline Casts NONE SEEN /LPF (0-2); Ketones Negative (Negative); Leukocyte Esterase Negative (Negative); Nitrite Negative (Negative); Ph 7.5 (4.6-8.0); Protein,Urine Dip Trace (Negative); Urobilinogen 0.2 mg/dL (0.2); WBC 0-2 /HPF (0-5)
--- NOTE | 2024-02-11 17:06 | XRAY ---
Indication: Aneurysm. Multiple contiguous axial images obtained through the chest without contrast. Comparison: July 14, 2021 Heart not enlarged again with aortic valve surgery. Ascending aorta remains prominent up to 5 cm unchanged. Remaining aorta is normal in course and caliber with minimal calcifications. Stable small mediastinal and bilateral hilar calcified nodes. No pathologic mediastinal lymphadenopathy. Lungs again demonstrates diffuse pulmonary emphysema with a few calcified granulomas. No suspicious pulmonary mass/nodule, infiltrate, or effusion. Bony thorax intact again with osteopenia, minimal/mild degenerative changes throughout spine and sternotomy wires. CT abdomen/pelvis reported separately. Impression: 1. Again aortic valve replacement with stable prominent ascending aorta. 2. Chronic findings including pulmonary emphysema, chronic bony findings, and old granulomatous disease. 3. No new/acute findings on this noncontrast exam.
--- NOTE | 2024-02-11 17:14 | XRAY ---
Indication: Right flank pain. Multiple contiguous axial images obtained through the abdomen and pelvis without contrast. Comparison: December 20, 2022 CT chest reported separately. Noncontrasted stomach and bowel loops appear nonobstructed with normal appendix. Stable minimal sigmoid diverticulosis, 1 cm right mid renal cyst, tiny splenic calcified granulomas, and tiny/small scattered mesenteric calcified granulomas. No free fluid/air. Remaining liver, gallbladder, pancreas, spleen, adrenal glands, kidneys, ureters, and bladder are unremarkable for noncontrast exam. Again minimal/mild scattered aortoiliac calcifications without AAA. Osseous structures intact again with osteopenia, mild/moderate degenerative changes throughout spine greatest at L2-L3, mild dextroscoliosis, and small benign right intratrochanteric bone island. No ventral or inguinal hernias. Impression: Again chronic findings including sigmoid diverticulosis, right renal cyst, arteriosclerotic disease, chronic bony findings, and old granulomatous disease. No new/acute findings on this noncontrast exam.
[2024-02-11 17:36] VITALS: RESP 16
[2024-02-11] MEDS ORDERED: NORCO 5/325 MG ONE (17:46)
[2024-02-11] MEDS ORDERED: Hydromorphone 1 mg/ml Injection ONE (17:46)
[2024-02-11] MEDS: NORCO 5/325 MG PO ONE (17:47)
[2024-02-11] MEDS: Hydromorphone 1 mg/ml Injection IV ONE (17:47)
[2024-02-11 17:52] VITALS: BP 112/74; PULSE 60; O2SAT 96
== END 2024-02-11 17:55 | disposition home or self-care (01) ==
LOC: ED 14:30
DX: M54.50 Low back pain, unspecified (principal); R10.2 Pelvic and perineal pain; R31.29 Other microscopic hematuria; R10.9 Unspecified abdominal pain; Z79.01 Long term (current) use of anticoagulants; Z79.899 Other long term (current) drug therapy
CPT/HCPCS: 36415; 71250; 74176; 80053; 81001; 82150; 83605; 83690; 85025; 96374; 96375; 99284; J1171; J2270; J2405; A9270-GY

== ENCOUNTER 2024-02-13 12:01 | Emergency (ER) | payer BC ==
[2024-02-13 12:10] VITALS: BP 142/106; PULSE 82; RESP 18; TEMP 97.7; O2SAT 98
--- NOTE | 2024-02-13 12:31 | ERPHSYRPT ---
- History of Present Illness Time Seen by Provider: 02/13/24 12:28 Source: patient Exam Limitations: no limitations Patient Subjective Stated Complaint: pt here for pain to right lower back that radiates around groin since , was seen on wednesday and had testing doen Triage Nursing Assessment: pt alert, walked in gait steady, appears in pain, facial grimacing, resp easy, skin w/d/p. moves all ext well, occ cough Physician History: pt here for pain to right lower back that radiates around groin since , was seen on Wednesday which was unremarkable. Patient is 63-year-old male with significant past medical history of aortic valve disease status post aortic valve repair history of degenerative disc disease of the lumbosacral spine was in ER last Wednesday with right flank pain at that time CT chest and abdomen and pelvis was unremarkable. Patient continues to have pain on the right side of the back radiating to the right lower extremity. He is unable to handle the pain so he came to the emergency room. He denies any other symptoms including difficulty in urination. Timing/Duration: day(s) (2-3 days) Method of Injury: unknown Quality: sharp, stabbing Back Pain Location: lumbar spine Back Pain Radiation: upper legs, lower legs Severity of Pain-Max: moderate Severity of Pain-Current: moderate Modifying Factors: Improves With: nothing Associated Symptoms: denies symptoms Previous symptoms: same symptoms as today Allergies/Adverse Reactions: No Known Drug Allergies Allergy (Verified 02/13/24 12:08) Home Medications: Ipratropium/Albuterol Sulfate [Iprat-Albut 0.5-3(2.5) mg/3 ml] 3 ml IH QID PRN 01/26/21 [History] Levothyroxine Sodium [Synthroid] 175 mcg PO DAILY 01/26/21 [History] Rosuvastatin Calcium 10 mg PO HS 01/26/21 [History] Warfarin Sodium 5 mg [Coumadin 5 MG] 2.5 mg PO DAILY 01/26/21 [History] Metoprolol Tartrate 25 mg [Lopressor 25MG Tab] 25 mg PO DAILY 02/11/24 [History] Hx Tetanus, Diphtheria Vaccination/Date Given: (unk) Hx Influenza Vaccination/Date Given: No Hx Pneumococcal Vaccination/Date Given: Yes Immunizations Up to Date: Yes Travel Risk - International Travel Have you traveled outside of the country in past 3 weeks: No - Emerging Infectious Disease Are you exhibiting symptoms associated with any current EIDs: No - Review of Systems Constitutional: No Fever, No Chills Eyes: No Symptoms Ears, Nose, & Throat: No Symptoms Respiratory: No Cough, No Dyspnea Cardiac: No Chest Pain, No Edema, No Syncope Abdominal/Gastrointestinal: No Abdominal Pain, No Nausea, No Vomiting, No Diarrhea Genitourinary Symptoms: No Dysuria Musculoskeletal: Back Pain, No Neck Pain, No Fall Skin: No Rash Neurological: No Dizziness, No Focal Weakness, No Sensory Changes Psychological: No Symptoms Endocrine: No Symptoms All Other Systems: Reviewed and Negative - Past Medical History Pertinent Past Medical History: Yes Cardiac History: Other Respiratory History: COPD Endocrine Medical History: Thyroid Cancer Other Medical History: Aortic valve replacement 1995, 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 - Past Surgical History Past Surgical History: Yes Cardiac: Valve Replacement Other Surgical History: thyroid removed Significant Family History: no pertinent family hx - Social History Smoking Status: Former smoker How long have you smoked: 30 years Exposure to second hand smoke: No Drug Use: none Patient Lives Alone: No - Social Determinants of Health Will the patient participate in the screening: Declined to provide - Nursing Vital Signs Nursing Vital Signs: Initial Vital Signs Temperature 97.7 F 02/13/24 12:10 Pulse Rate 82 02/13/24 12:10 Respiratory Rate 18 02/13/24 12:10 Blood Pressure 142/106 02/13/24 12:10 O2 Sat by Pulse Oximetry 98 02/13/24 12:10 Pain Scale Pain Intensity [Right Back] 10 Pain Intensity 10 - Physical Exam General Appearance: no apparent distress, alert Eye Exam: PERRL/EOMI, eyes nml inspection Neck Exam: normal inspection, non-tender, supple, full range of motion, No meningismus, No midline tenderness Respiratory Exam: normal breath sounds, lungs clear, No respiratory distress Cardiovascular Exam: regular rate/rhythm, normal heart sounds Gastrointestinal Exam: soft, No tenderness, No mass Extremity Exam: normal inspection, normal range of motion, No calf tenderness, No pedal edema Neurologic Exam: alert, oriented x 3, cooperative, polo coach II-XII nml as tested, nor mal mood/affect, nml station & gait, sensation nml, No motor deficits Skin Exam: normal color, warm, dry, No rash SpO2 Interpretation: normal SpO2: 98 O2 Delivery: Room Air - Course Nursing assessment & vital signs reviewed: Yes Ordered Tests: Medication Summary Discontinued Medications Generic Name Dose Route Start Last Admin Trade Name Laura PRN Reason Stop Dose Admin Ketorolac Tromethamine 60 mg 02/13/24 12:32 02/13/24 12:41 Ketorolac Tromethamine 30 Mg/Ml Inj IM 02/13/24 12:33 60 mg STAT ONE Administration Ketorolac Tromethamine Confirm 02/13/24 12:37 Ketorolac Tromethamine 30 Mg/Ml Inj Administered 02/13/24 12:38 Dose 60 mg .ROUTE [employer] Orphenadrine Citrate 60 mg 02/13/24 12:32 02/13/24 12:41 Orphenadrine Citrate 60 Mg/2 Ml Vial IM 02/13/24 12:33 60 mg STAT ONE Administration Orphenadrine Citrate Confirm 02/13/24 12:38 Orphenadrine Citrate 60 Mg/2 Ml Vial Administered 02/13/24 12:39 Dose 60 mg .ROUTE [employer] Lab/Rad Data: CT/RECONSTRUCTION CLINICAL HISTORY:back pain COMPARISON:A CT scan of the abdomen and pelvis dated 12/20/2022 was reviewed. TECHNIQUE:A CT scan without contrast lumbar spine was done. Axial images were obtained with reformatted coronal and sagittal images and submitted for interpretation. FINDINGS: The physiologic lumbar lordosis is maintaned. There is grade I retrolisthesis of L2 over L3, L3 over L4 and L5 over S1. Advanced degeneration with ventral osteophytic lipping, L2 and L3 subchondral sclerosis, vacuum phenomenon and narrow disc spaces is noted. Normal vertebral bodies height. Intact vertebral bodies and neural arches. No definite fractures could be detected. Segmental disc analysis level by level: L1- L2: There is no significant disc herniation or neural foraminal narrowing visualized. Central canal is unremarkable. No sign of lateral recess stenosis. Nerve roots are normal. L2- L3: There is diffuse pseudo disc bulge measureing 2.4 indenting the thecal sac compromising subarticular recesses. There is mild central canal stenosis and mild bilateral neural foraminal stenosis. Buckled ligamenta flava and arthropathic facet joints augment effects. L3- L4: There is diffuse pseudo disc bulge measureing 4.8 indenting the thecal sac compromising subarticular recesses. There is mild central canal stenosis and mild bilateral neural foraminal stenosis. Buckled ligamenta flava and arthropathic facet joints augment effects. L4- L5: There is diffuse disc bulge measureing 3.7 indenting the thecal sac compromising subarticular recesses. There is mild central canal stenosis and mild bilateral neural foraminal stenosis. Buckled ligamenta flava and arthropathic facet joints augment effects. L5- S1: There is diffuse pseudo disc bulge measureing 4.2 indenting the thecal sac compromising subarticular recesses. There is mild central canal stenosis and mild bilateral neural foraminal stenosis. Buckled ligamenta flava and arthropathic facet joints augment effects. There are small sclerotic foci in the bilateral sacrum, likely enostoses. IMPRESSION: Advanced degeneration with ventral osteophytic lipping, L2 and L3 subchondral sclerosis, vacuum phenomenon and narrow disc spaces Retrolisthesis of L2 over L3, L3 over L4 and L5 over S1 Multiple level disc bulges as described MRI is suggested if clinically warranted. - Progress Progress: improved, pain not gone completely - Departure Departure Disposition: Home Clinical Impression: DDD (degenerative disc disease), lumbar Qualifiers: Disc-related pain type: discogenic back pain and lower extremity pain Qualified Code(s): M51.362 - Other intervertebral disc degeneration, lumbar region with discogenic back pain and lower extremity pain Condition: Stable Critical Care Time: No Referrals: XU OWEN MD [CONSULTING PHYSICIAN] - Follow up/PCP as directed JULIENNE INGRAM [Primary Care Provider] - Follow Up with PCP/3 days Instructions: Low Back Pain (DC), Sciatica (DC) Additional Instructions: Discharge/Care Plan ALISSA STAFFORD was seen on 02/13/24 in the Emergency Room. The patient was counseled regarding Diagnosis,Lab results, Imaging studies, need for follow up and when to return to the Emergency Room. Prescriptions given: Discharge Note I have spoken with the patient and/or caregivers. I have explained the patient's condition, diagnosis and treatment plan based on the information available to me at this time. I have answered the patient's and/or caregiver's questions and addressed any concerns. The patient and/or caregivers have as good understanding of the patient's diagnosis, condition and treatment plan as can be expected at this point. The vital signs have been stable. The patient's condition is stable and appropriate for discharge from the emergency department. The patient will pursue further outpatient evaluation with the primary care physician or other designated or consulting physician as outlined in the dischar ge instructions. The patient and/or caregivers are agreeable to this plan of care and follow-up instructions have been explained in detail. The patient and/or caregivers have received these instruction. The patient/and or caregivers are aware that any significant change in condition or worsening of symptoms should prompt an immediate return to this or the closest emergency department or call 911. ALISSA STAFFORD was seen on 02/13/24 n the Emergency Room. At that time you were treated for an emergent condition, during your visit Laboratory, Radiology and/or other procedures may have been ordered. It is very important that you follow-up with your Primary Care Physician JULIENNE INGRAM within the next 24-48 hours to review your Emergency Room visit and the final results of testing that was ordered. Some test results such as Urine Cultures, Blood Cultures, and other cultures if ordered will not be finalized for 24-48 hours. If you do not have a Primary Care Provider please call the medical records department at [phone] ext [phone] to obtain a copy of your results or you may sign into our patient portal to obtain these results by visiting us @ [email or web address] and completing the following steps: 1. Click on the Patient Portal link 2. Click the Patient Self Enrollment Link to complete the enrollment form and entering your 3. Once the enrollment form is completed you will receive an email with a temporary ID and password at the email address you provided. 4. Next choose a user name and password. Your user name must be at least 4 characters long and your password must be at least 4 characters long. 5. Choose a security question from the list and provide your answer to the question. If you already have signed into the Health Portal you may access your Health Care Information 05/10 by the following steps: 1. Login to our website @ [email or web address] 2. Enter your original user name and password. FAQS The [facility] Health Portal is an online tool that contains your Lab Results, Radiology Reports, Visit History, Discharge Instructions and Health Summary Lab and Radiology Results will not be available for 72 hours on the portal. The Portal is a secure site, passwords are encryted and URLs are re-written so they cannot be copied and pasted. You and authorized family members are the only ones who can access your Portal. Also there is a timeout feature that protects your information if you leave the Portal page open. If you have technical difficulty please use the Contact Us link on the page this will allow you to submit any questions you have regarding the Portal or you may contact the Medical Record Department at [phone] ext [phone]. Prescriptions: Methylprednisolone Packet [Medrol Dosepack] 4 mg PO UD #21 packet
[2024-02-13] MEDS ORDERED: TORAdol 30 mg Injection ONE (12:37)
[2024-02-13] MEDS ORDERED: Norflex 60 MG/2 ML ONE (12:38)
[2024-02-13] MEDS: TORAdol 30 mg Injection IM ONE (12:41)
[2024-02-13] MEDS: Norflex 60 MG/2 ML IM ONE (12:41)
== END 2024-02-13 13:28 | disposition home or self-care (01) ==
LOC: ED 12:01
DX: M51.362 Other intervertebral disc degeneration, lumbar region with discogenic back pain and lower extremity pain (principal); M54.9 Dorsalgia, unspecified
CPT/HCPCS: 96372; 99283; J1885; J2360

== ENCOUNTER 2024-05-08 09:02 | Day surgery (SDC) | payer BC ==
--- NOTE | 2024-05-08 08:55 | HP ---
HISTORY OF PRESENT ILLNESS: A 63-year-old gentleman, last colonoscopy 10 years ago. No bloody stools. No change in bowel habits. Some constipation over a period of time but no recent changes, no new pain. Family history negative for colon cancer. PAST MEDICAL HISTORY: Hyperlipidemia, hypertension, thyroid disease, asthma, bronchitis, COPD, some heart disease. HOME MEDICATIONS: Synthroid, rosuvastatin, metoprolol, and warfarin. ALLERGIES: No known drug allergies. PAST SURGICAL HISTORY: Had colonoscopy and aortic valve replaced in the past, EGD, thyroidectomy in the past. SOCIAL HISTORY: He does smoke. He occasionally drinks. FAMILY HISTORY: Negative with regard to this problem REVIEW OF SYSTEMS: Twelve systems reviewed. Pertinent for multiple medical problems as noted above. History of valve replacement. PHYSICAL EXAMINATION: GENERAL: Height 5 feet 8 inches. Weight 170 pounds. No acute distress. HEENT: Sclerae nonicteric. NECK: No JVD. CHEST: Equal excursion. Nonlabored breathing CARDIOVASCULAR: Regular rate and rhythm. ABDOMEN: Soft. EXTREMITIES: No clubbing, cyanosis, edema. NEUROLOGIC: Alert and oriented. Moving all extremities symmetrically. PSYCHIATRIC: Appropriate mood and affect. SKIN: Dry RECTAL: Deferred until time of endoscopy exam. IMPRESSION: Patient is in need of screening colonoscopy. Feel he is a candidate. Shown the risk sheet. Explained the procedure in detail but not limited to bleeding, infection, risk of bowel injury or perforation possibly requiring other procedure, risk of missed or nondiagnosis or incomplete exam possibly requiring barium enema or other studies or procedures, general risks of anesthesia or sedation, risk of bowel prep, but not limited to. We will have him hold his blood thinners preop. His medical physician will bridge with [facility] given his valve replacement. Otherwise, plan outpatient colonoscopy under MAC anesthesia. Otherwise, continue medications for heart disease, hypertension, COPD, hyperlipidemia, and thyroid disease.
[2024-05-08] MEDS ORDERED: Lactated Ringers 1,000 ML IV ONE (09:13)
[2024-05-08] MEDS: Lactated Ringers 1,000 ML IV ONE (09:18)
[2024-05-08 09:59] LABS: INR 1.55 (0.8-3.0); PROTIME 16.4 SECONDS (9.4-12.5)
[2024-05-08 10:03] LABS: ANION GAP 11.7 MEQ/L (5-15); Calcium 8.8 mg/dL (8.4-10.2); Creatinine 1 0.71 mg/dL (0.66-1.25); EST GLOMERULAR FILTRATION RATE 102.5 ML/MIN; Potassium 3.5 mmol/L (3.5-5.1)
[2024-05-08] MEDS ORDERED: SUBLIMAZE 100 MCG/2 ML ONE (11:44)
[2024-05-08] MEDS ORDERED: propofoL IV ONE (11:44)
[2024-05-08] MEDS ORDERED: Xylocaine-Mpf 2% 5 Ml Vial ONE (11:44)
[2024-05-08] MEDS ORDERED: Versed 2 MG/2 ML Injection ONE (11:45)
[2024-05-08 13:03] VITALS: BP 113/87; PULSE 77; RESP 18; TEMP 98.5
[2024-05-08 13:07] VITALS: O2SAT 91
--- NOTE | 2024-05-09 12:52 | OP ---
SURGERY DATE/TIME: 05/08/2024 [id number] PREOPERATIVE DIAGNOSES: 1) Need for screening colonoscopy. 2) History of heart valve replacement. POSTOPERATIVE DIAGNOSES: 1) Ascending, transverse colon, sigmoid colon polyps. 2) Left colon diverticulosis. 3) Fair bowel prep. 4) Withdrawal time 12 minutes. 5) ASA class 3. PROCEDURE: 1) Colonoscopy to cecum. 2) Hot biopsy piecemeal polypectomy of 3 mm ascending colon polyp. 3) Hot biopsy polypectomy of 2 to 3 mm polyp x2 of transverse colon. 4) Hot snare polypectomy of sigmoid colon polyps x3 (ranging in size from approximately 3 to 5 mm). SURGEON: Kelvin Harper MD ANESTHESIA: MAC. ESTIMATED BLOOD LOSS: Minimal. INDICATIONS: Consent obtained. DESCRIPTION OF PROCEDURE AND FINDINGS: Patient was taken to endoscopy room. MAC anesthesia induced. After official time-out, no disagreement with planned procedure. Digital rectal exam did not reveal any masses. Videocolonoscope inserted, passed up through a somewhat tortuous sigmoid, descending, transverse, ascending colon around the cecum. Appendiceal orifice and valve well visualized. Prep overall was only fair. Some liquidy semisolid stool throughout the colon. It was suctioned irrigated as clear as possible, just sightly limited exam for very small lesions. Scope was carefully withdrawn over the next 12 minutes after photodocumented appendiceal orifice and the ileocecal valve. There was a 3 mm polyp that was removed in hot biopsy piecemeal polypectomy fashion in the ascending colon. There were 2 small 2 to 3 mm polyps removed with hot biopsy polypectomy in the transverse colon. Back in the sigmoid colon there were 3 polyps ranging in size from 3 to 5 mm removed with hot snare polypectomy. He did have some mild diverticulosis in the left colon but otherwise no signs of any large polyps, masses, or obstructing lesions. The scope was withdrawn. Patient tolerated the procedure well. Findings discussed with family in the waiting area. His medical physicians will decide on resuming his blood thinner, whether to wait until tomorrow to try some Lovenox. He is going to have to monitor for bleeding since we did do a polypectomy. Patient is to have a back injection procedure later in the week.
== END 2024-05-08 13:16 | disposition home or self-care (01) ==
LOC: SDC 09:02
PROVIDERS: ATTEND Surgery
DX: Z12.11 Encounter for screening for malignant neoplasm of colon (principal); Z95.4 Presence of other heart-valve replacement; I10 Essential (primary) hypertension; Z79.01 Long term (current) use of anticoagulants; K57.30 Diverticulosis of large intestine without perforation or abscess without bleeding; D12.2 Benign neoplasm of ascending colon; D12.5 Benign neoplasm of sigmoid colon; D12.3 Benign neoplasm of transverse colon
CPT/HCPCS: 36415; 80048; 85610; 88305; 93005; J2250; J2704; J3010

== ENCOUNTER 2024-05-11 11:23 | Day surgery (SDC) | payer BC ==
[2024-05-11] MEDS ORDERED: dexAMETHasone sodium phosphate IJ ONE (11:24)
[2024-05-11] MEDS ORDERED: Sodium Chloride 0.9(Preservative Free) 10 ML IJ ONE (11:24)
[2024-05-11 12:53] LABS: INR 1.03 (0.8-3.0); PROTIME 11.2 SECONDS (9.4-12.5)
[2024-05-11] MEDS ORDERED: propofoL IV ONE (13:29)
[2024-05-11] MEDS ORDERED: DUONEB 0.5-3 MG/3 ml Neb IH ONE (13:50)
[2024-05-11] MEDS: DUONEB 0.5-3 MG/3 ml Neb IH ONE (13:53)
[2024-05-11 13:58] VITALS: PULSE 62; RESP 20; O2SAT 94
--- NOTE | 2024-05-11 21:03 | XRAY ---
Indication: Right L3-L5 transforaminal SHAHBAZ. Intraoperative fluoroscopy provided for 20 seconds. 4 digital spot image submitted for interpretation demonstrates posterior needle tips projecting over expected L3 and L5 nerve roots. Small amount of contrast injected for needle tip basement. Correlate with intraoperative findings/report.
== END 2024-05-11 14:15 | disposition home or self-care (01) ==
LOC: SDC-PAIN 11:23
PROVIDERS: ATTEND Psychiatry & Neurology Pain Medicine
DX: M54.16 Radiculopathy, lumbar region (principal); Z79.01 Long term (current) use of anticoagulants
CPT/HCPCS: 36415; 64483; 64484; 72100; 77003; 85610; 94640; J1100; J2704; Q9966; A9270-GY